=== PATIENT | male | born 1985 | race Caucasian/White ===

== ENCOUNTER 2016-08-22 11:27 | Emergency (ER) | payer OTHER ==
[~2016-08-22] VITALS: Ht 182.9 cm; Wt 106.8 kg
[~2016-08-22 11:27] MED LIST: AMLO5TAB2 PO; AMOX-366 PO; GABA800T2 PO; HYDR50TA76 PO; INSU100V4 SUBQ; LISI30TA5 PO; TOPI-59 PO; TRAZ-115 PO
[2016-08-22 11:40] VITALS: BP 133/84; PULSE 92; RESP 20; O2SAT 100
[2016-08-22 12:50] LABS: BASOPHILS % (AUTO) 0.6 % (0-3); EOSINOPHILS % (AUTO) 2.7 % (0-5); MONOCYTES % (AUTO) 5.2 % (4-12); Mean Corpuscular Hemoglobin 30.8 pg (27.0-35.0); Mean Corpuscular Volume 89.3 fL (81-100); NEUTROPHILS % (AUTO) 60.6 % (40-74); Platelet Count 364 bil/L (150-400)
[2016-08-22 13:11] LABS: Magnesium 1.9 mg/dL (1.6-2.6)
[2016-08-22 14:03] VITALS: BP 125/82; PULSE 73; RESP 20; O2SAT 100
--- NOTE | 2016-08-22 15:08 | ED.REPORT ---
HPI-Abd Pain M 40 and Over Date of Service Aug 22, 2016 ED Provider: Blair Ang MD History of Present Illness: OCC This is a 31 year old male with a history of DM and HTN presenting to the emergency department complaining of testicular pain that worsened 10 days ago. Pt had L inguinal hernia repair surgery in May and reports mild residual L testicular pain since then. However, ten days ago, pt developed R sided testicular pain along with lower abdominal pain. Abdominal pain is described as , "sharp and piercing." Associated symptoms include nausea. Pain has been constant and is exacerbated by movement. Denies swelling, fever, chills, dysuria, flank pain, discharge, or vomiting. Nursing Notes Stated Complaint: ABDOMINAL PAIN Chief Complaint: Male Abdominal Pain Nursing Notes Reviewed: Yes (Mipso not reconciled) Allergies: Coded Allergies: No Known Allergies (Verified Allergy, Unknown, 12/10/15) Scheduled Amlodipine (Amlodipine) 5 Mg Tablet 10 NG PO HS Amoxicillin/Clav K 875-125 mg (Augmentin 875-125 mg) 1 Each Tablet 1 TABLET PO BID Gabapentin (Gabapentin) 800 Mg Tablet 1,600 MG PO HS Insulin Detemir (Levemir U100 Insulin Vial) 100 Unit/1 Ml Vial 25 UNITS SUBQ QAM Lisinopril (Lisinopril) 30 Mg Tablet 30 MG PO DAILY Topiramate (Topiramate) 25 Mg Tablet 200 MG PO BID Trazodone (Trazodone) 50 Mg Tablet 50 MG PO HS Scheduled PRN Hydroxyzine HCl (HydrOXYzine Hcl) 50 Mg Tablet 50 MG PO QID PRN PRN For Itching General Time Seen by MD: 15:02 Chief Complaint Testicular pain R, Testicular pain L Hx Obtained From: Patient Arrived By: Walk-in Sudden in Onset?: Yes Onset Occurred: 1 week ago Symptom Duration: Since onset Severity: Current: Moderate Pertinent Negative: Pt denies other symptoms Recent Healthcare: No recent doctor visit, No recent hospitalization Similar Sx Previous: No Past Medical History Past Medical History HTN Seizures (focal nocturnal) anxiety insomnia arachnoid cyst polyps in sinus cavities Reports: Diabetes mellitus Past Surgical History Inguinal hernia repair Deviated septum repair Family History noncontributory Smoking History Current Every Day Smoker, Current Some Day Smoker Social History Alcohol Use: Denies alcohol use Drug Use: Denies drug use Ambulatory Status Independent Review of Systems Constitutional: Denies: Chills, Fever Respiratory: Denies: Non-productive cough GI: Reports: Abdominal pain, Nausea, Denies: Constipation, Diarrhea, Vomiting Male: Reports Testicular pain, Denies Dysuria Complete sys rev & neg: except as marked. Physical Exam Initial Vital Signs Vital Signs (First) Date Time Temp Pulse Resp B/P Pulse Ox O2 Delivery O2 Flow Rate FiO2 08/22/16 11:40 36.2 92 20 133/84 100 Room Air Initial VS: Reviewed, Vital signs normal Head / Eyes: Atraumatic, Normocephalic, PERRL ENT: Mucous membranes moist, Conjunctiva normal, No scleral icterus Neck: Supple, Non-tender, Full range of motion Extremities: Vascular intact, Neuro intact, No swelling, No tenderness Skin: Warm, Dry, No cyanosis Neurologic: Alert, Oriented, Nonfocal Psychiatric: Mood/affect normal, Behavior normal, Normal thought content General/Constitutional: Awake, Alert Respiratory / Chest: Breath sounds = bilat, No respiratory distress, No rales, No rhonchi Wheezing / Retractions: Positive: Wheeze insp/exp diffuse Cardiovascular: Heart rate NL, Regular rhythm, Heart sounds NL, Peripheral circulation NL Abdomen: No guarding, No rebound, BS normoactive Tenderness/Guarding/Rebound: Positive: Tender LLQ... (Mild) Back: Inspection NL, Non-tender, No CVA tenderness Male Genitourinary: Penis NL, No penile discharge, No meatal blood, No mass, No hernia Surgical incision at L inguinal region that appears well-healed. No mass, no obvious hernia recurrance, no swelling, no erythema, no clinical signs of torsion. Interpretation & Diagnostics Interpretation & Diagnostics: TESTICULAR US IMPRESSION: Normal testicles bilaterally. ABD/PELVIS CT IMPRESSION: 1. Post surgical changes in the left inguinal region related to left inguinal hernia repair. The left inguinal canal is prominent but no evidence for recurrent hernia. Mild soft tissue stranding deep to the left groin is likely postsurgical. 2. Enlargement of the left rectus abdominois muscle with mild stranding, likely secondary to resolving hematoma. There is no fluid collections. 3. Mild enlargement of appendix which measures 7.7 mm. There is no periappendiceal stranding. No right lower quadrant fluid collection or free fluid. Acute appendicitis is felt unlikely but clinical correlation is suggested. 4. A 3 mm nodule in the right middle lobe. Please see recommendations for followup. Fleischner Society criteria for SOLID lung nodule followup. Nodule size (mm)Low-risk patientHigh- risk [id number] follow-up neededFollow-up at 12 mo; if no change, no further follow-up>[id number] CT at 12 mo; if no change, no further follow-up needed.Initial follow-up CT at 6-12 mo, then 18-24 mo if no change. >6-8Initial follow-up CT at 6-12 mo, then 18-24 mo if no change. Initial follow-up CT at 3-6 mo, then 9-12 mo and 24 mo if no change. >8Follow-up CT at 3, 9, 24 mo. Or PET and/or biopsy.Same as for low-risk pts. Dictated by: Katy Lucas M.D. on 08/22/2016 at 16:18 Approved by: Katy Lucas M.D. on 08/22/2016 at 16:49 Dictated by: Gilberto Mccarthy RRA Interpreted: Tita Victoria MD on 08/22/2016 at 16:09 Transcribed by: KALIE on 08/22/2016 at 16:10 Lab Results Interpretation Result Diagram: 08/22/16 1241 08/22/16 1241 Test 08/22/16 12:41 08/22/16 14:42 08/22/16 15:21 White Blood Count 8.4th/mm3 (3.8-10.1) Red Blood Count 5.04mil/mm3 (4.40-5.80) Hemoglobin 15.5g/dL (13.8-17.2) Hematocrit 45.0% (41.0-50.0) Mean Corpuscular Volume 89.3fL (81-100) Mean Corpuscular Hemoglobin 30.8pg (27.0-35.0) Mean Corpuscular Hemoglobin Concent 34.4% (32.0-37.0) Red Cell Distribution Width 12.9% (12.3-15.4) Platelet Count 364bil/L (150-400) Neutrophils (%) (Auto) 60.6% (40-74) Lymphocytes (%) (Auto) 30.5% (14-46) Monocytes (%) (Auto) 5.2% (4-12) Eosinophils (%) (Auto) 2.7% (0-5) Basophils (%) (Auto) 0.6% (0-3) Sodium Level 137mEq/L (134-144) Potassium Level 4.1mEq/L (3.5-5.2) Chloride Level 103mEq/L (97-108) Carbon Dioxide Level 18mmol/L (18-29) Blood Urea Nitrogen 9mg/dL (6-20) Creatinine 0.53mg/dL (0.76-1.27) Estimat Glomerular Filtration Rate 191mL/min (>59) Glucose Level 165mg/dL (60-99) Calcium Level 9.2mg/dL (8.5-10.1) Magnesium Level 1.9mg/dL (1.6-2.6) Total Bilirubin 0.2mg/dL (0.0-1.2) Aspartate Amino Transf (AST/SGOT) 15U/L (0-50) Alanine Aminotransferase (ALT/SGPT) 22U/L (0-44) Alkaline Phosphatase 67U/L (25-150) Total Protein 7.2g/dL (6.4-8.4) Albumin 5.0g/dL (3.4-5.0) Lipase 28U/L (13-60) Hold Urine Received (Received) Urine Color Straw (YELLOW) Urine Appearance Hazy (CLEAR,HAZY) Urine pH 7.5 (5.0-8.0) Urine Specific [place] 1.015 (1.003-1.035) Urine Protein Negativemg/dL (NEG,TRACE) Urine Glucose (UA) Negativemg/dL (NEGATIVE) Urine Ketones Negativemg/dL (NEGATIVE) Urine Occult Blood Negative (NEGATIVE) Urine Nitrite Negative (NEGATIVE) Urine Bilirubin Negative (NEGATIVE) Urine Urobilinogen Normalmg/dL (NORMAL) Urine Leukocyte Esterase Negative (NEGATIVE) Urine RBC 0-2/hpf (0-2) Urine WBC 0-5/hpf (0-5) Urine Epithelial Cells None/hpf (NONE-MOD) Urine Crystals None seen (NONE SEEN) Urine Bacteria None/hpf (NONE-FEW) Urine Hyaline Casts None/lpf (NONE) Urine Granular Casts None seen (NONE SEEN) Urine Waxy Casts None seen (NONE SEEN) Urine Red Blood Cell Casts None seen (NONE SEEN) Urine White Blood Cell Casts None seen (NONE SEEN) Urine Mucus None seen (None Seen) Urine Trichomonas None seen (NONE SEEN) Urine Yeast None (NONE SEEN) Urinalysis Comment Amorphous sediment Urine Culture Reflexed Not indicated Lab Results Interpretation: CBC normal CMP normal Re-Eval/Medical Decision Med Decision/Clinical Course This is a 31-year-old male was several months ago underwent a left inguinal hernia repair, has had some chronic pain reports she has been told there may be some "nerve damage" but reports over the past week he has had increasing pain radiating to both testicles, now across the lower abdomen, mainly on the left. He denies fevers, dysuria, urethral discharge, scrotal swelling, scrotal erythema, or other clear complaint. He clinically appears well and no visible external distress. His vital signs are normal. His physical exam is normal, he has some mild tenderness to the left lower quadrant without guarding or rebound. He is uncircumcised male no penile pathology, scrotal exam and testicular exam is normal without findings clinically I was scrotal abscess, infection, epididymitis, orchitis, or torsion. Workup was pursued given his description of symptoms. Testicular ultrasound was normal, no evidence of torsion or other overt pathology. CT abdomen itching of the abdomen is also negative. The radiologist comments that the appendix on the right side appears slightly enlarged, but there are no strenuous or other features of appendicitis and recommends clinical correlation , and the patient's clinical history, physical exam, and laboratory studies do not demonstrate any findings to suggest appendicitis. Definitive cause of his symptoms is not identified. The patient's advised of this and is comfortable with discharge home and follow-up with his physician. Routine precautions reviewed. Patient is discharged in stable condition. Source of Hx: Old records Time of Eval: 17:28 Re-Evaluation/Progress Note: Discussed lab and imaging results and plan for discharge, pt understands and agrees with plan, all questions addressed. Differential Diagnosis: Negative: Abdominal aortic aneurysm, Abscess, Gastroenteritis, Gun shot wound abdomen, Stab wound abdomen, Torsion appendix teste L, Torsion appendix teste R, Torsion testicle L, Torsion testicle R, Urinary tract infection, Volvulus Counseled Regarding: Diagnosis, Lab results, Need for follow-up, When/why to return to ED Discharge & Departure Primary Impression: Generalized abdominal pain Disposition: Home Vital Signs - All Vital Signs Date Time Temp Pulse Resp B/P Pulse Ox O2 Delivery O2 Flow Rate FiO2 08/22/16 14:03 73 20 125/82 100 08/22/16 11:40 36.2 92 20 133/84 100 Room Air )( All Prior VS Reviewed: Yes Condition: Stable Additional Instructions: 1. A dangerous cause of the testicle and abdominal pain you have been having for the past week was not identified. 2. Your blood tests were normal. 3. The ultrasound of the testicles were normal. 4. The CT scan reveals some expected post-surgical scarring at the sight of the hernia repair - but there are no signs of a recurrent hernia. 5. Activities as tolerated 6. Take ibuprofen 400mg - 800mg three times a day for pain 7. Call for an appointment with your regular doctor for a recheck. 8. Return if new or worsening symptoms (fevers, swelling, etc...) Referrals: Michael Thomas MD (PCP) Scribe Attestation Portions of this note were transcribed by Tonie Springer. I, Dr. Ang personally performed the history, physical exam and medical decision-making; I reviewed and confirmed the accuracy of the information in the transcribed note. Signed by: sydney Macias. 08/22/2016, 23:30. Blair Ang MD Aug 22, 2016 15:08 TONIE SPRINGER Aug 22, 2016 15:20
[2016-08-22] MEDS ORDERED: Ondansetron 2 mg/mL 2 mL Inj IVPUSH ONE (15:20)
[2016-08-22] MEDS ORDERED: HYDROmorphone 0.5 mg/0.5 mL iSecure Syringe IVPUSH PRN (15:20)
[2016-08-22 15:53] LABS: APPEARANCE,URINE HAZY (CLEAR,HAZY); COLOR,URINE STRAW (YELLOW); OCCULT BLOOD,URINE NEGATIVE (NEGATIVE); PH,URINE 7.5 (5.0-8.0); UROBILINOGEN,URINE NORMAL (NORMAL)
--- NOTE | 2016-08-22 16:10 | DRSVH ---
PROCEDURE: US TESTICULAR SONOGRAM WITH DOPPLER INDICATIONS: testicular pain TECHNIQUE: Real-time scanning was performed of the scrotum and testicles, with image documentation. Color and p ulse Doppler interrogation was performed of both testicles. COMPARISON: None. FINDINGS: Right: Testicle is normal in size at 4.3 x 3.2 x 2.8 cm, and homogenous in echotexture. Epididymis is normal in overall size and morphology. No hydrocele or varicoceles. Overlying scrotal skin is no rmal in thickness. Left: Testicle is normal in size at 3.7 x 3.9 x 2.5 cm, and homogeneous in echotexture. Epididymis is normal in overall size and morphology. No hydrocele or varicoceles. Overlying scrotal skin is no rmal in thickness. Doppler: Color and pulse Doppler demonstrate normal and symmetric arterial flow in both testicles. IMPRESSION: Normal testicles bilaterally. Dictated by: Gilberto HARTMAN Interpreted: Tita Victoria MD on 08/22/2016 at 16:09 Transcribed by: KALIE on 08/22/2016 at 16:10 Approved by: Tita Victoria M.D. on 08/22/2016 at 16:48
--- NOTE | 2016-08-22 16:51 | DRSVH ---
PROCEDURE: CT ABDOMEN AND PELVIS WITH CONTRAST ([id number]) INDICATIONS: lower abd pain TECHNIQUE: After the administration of intravenous contrast, 5 mm thick sections acquired from the diaphragm to the symphysis. 5 mm coronal and sagittal reformats were acquired. For radiation dose reduction, the following was used: automated exposure control, adjustment of mA and/or kV according to patient siz e. COMPARISON: [facility], CT, CT ABDOMEN PELVIS W CONTRAST, 12/31/2015, 10:21 AM. [facility], CT, CT ABDOMEN PELVIS W CONTRAST, 03/10/2016, 10:05 PM. [facility], C T, CT ABD PELVIS W CON, 06/15/2015, 0:49. FINDINGS: Image quality: Excellent. ABDOMEN: Lung bases: There is a 3 mm nodule in the right middle lobe, which is unchanged from 12/31/59. Heart size is normal. Solid organs: Liver and spleen are normal in size and enhancement. Gallbladder is normal. Biliary system is non dilated. Pancreas enhances normally. No adrenal nodules. Kidneys demonstrate normal size and enhancement, without hydronephrosis. Peritoneum and bowel: Bowel loops demonstrate normal wall thickness and caliber. The appendix is pr ominent measuring 7.7 mm. There is no inflammatory stranding around appendix. No appendicoliths. No f ree fluid in the right lower quadrant.. No free air. Nodes and vessels: No retroperitoneal or mesenteric adenopathy by size criteria. Aorta and inferior vena cava are normal in size. Miscellaneous: No ventral hernias. PELVIS: Genitourinary: Bladder wall thickness is normal. Miscellaneous: The left internal canal is prominent but no recurrent inguinal hernia. The left rectus muscle is enlarged with mild stranding and mass effect to the left anterior aspect of the urinary bl adder. A small amount of fluid in the left scrotum is consistent with small hydrocele. Bones: No suspicious bony lesions. No vertebral body compression fractures. IMPRESSION: 1. Post surgical changes in the left inguinal region related to left inguinal hernia repair. The left inguinal canal is prominent but no evidence for recurrent hernia. Mild soft tissue stranding deep to the left groin is likely postsurgical. 2. Enlargement of the left rectus abdominois muscle with mild stranding, likely secondary to resolvin g hematoma. There is no fluid collections. 3. Mild enlargement of appendix which measures 7.7 mm. There is no periappendiceal stranding. No righ t lower quadrant fluid collection or free fluid. Acute appendicitis is felt unlikely but clinical co rrelation is suggested. 4. A 3 mm nodule in the right middle lobe. Please see recommendations for followup. Fleischner Society criteria for SOLID lung nodule followup. Nodule size (mm)Low-risk patientHigh-risk [id number] follow-up neededFollow-up at 12 mo; if no townsend e, no further follow-up>[id number] CT at 12 mo; if no change, no further follow-up needed.Initial f ollow-up CT at 6-12 mo, then 18-24 mo if no change. >6-8Initial follow-up CT at 6-12 mo, then 18-24 mo if no change. Initial follow-up CT at 3-6 mo, then 9-12 mo and 24 mo if no change. >8Follow-up CT at 3, 9, 24 mo. Or PET and/or biopsy.Same as for low-risk pts. Dictated by: Katy Lucas M.D. on 08/22/2016 at 16:18 Approved by: Katy Lucas M.D. on 08/22/2016 at 16:49
== END 2016-08-22 18:09 | disposition home or self-care (01) ==
LOC: SED 11:27
DX: R10.84 Generalized abdominal pain (principal); Z98.890 Other specified postprocedural states; E11.9 Type 2 diabetes mellitus without complications; I10 Essential (primary) hypertension; F17.200 Nicotine dependence, unspecified, uncomplicated; Z79.4 Long term (current) use of insulin
CPT/HCPCS: 36415; 74177; 76870; 80053; 81000; 83690; 83735; 85025; 87491; 87591; 93975; 96374; 96375; 99285; J1170; J2405; Q9967

== ENCOUNTER 2016-11-07 15:36 | Emergency (ER) | payer OTHER ==
[~2016-11-07] VITALS: Ht 182.9 cm; Wt 109.1 kg
[2016-11-07 15:49] VITALS: BP 139/92; PULSE 86; RESP 17; O2SAT 100
--- NOTE | 2016-11-07 16:24 | ED.REPORT ---
HPI-Chest Pain Under 40 Date of Service November 07, 2016 ED Provider: Blair Ang MD 31 y/o male with a hx of HTN, DM, asthma, and anxiety presents to the ED complaining of chest pain, onset yesterday. The pt reports his pain is exacerbated with activity but today he suddenly began experiencing pain around noon while he was resting. He states "it feels like someone is punching me". His pain starts in the middle of the chest and radiates to the right side. Associated sx include nausea and intermittent SOB with walking, which typically lasts 2-3 hours. The pt reports that two days ago he experienced chest pain on the right side and could not walk due to SOB. The pt denies any SOB currently. He also denies vomiting and diaphoresis.The pt reports he took Aspirin which did not improve his sx. Pt's mother has had multiple Myocardial Infarctions, the first one at age 31. He has never had a stress test before. Nursing Notes Stated Complaint: CHEST PAIN Chief Complaint: Chest Pain Nursing Notes Reviewed: Yes ([employer] not reconciled) Allergies: Coded Allergies: No Known Allergies (Verified Allergy, Unknown, 11/07/16) Scheduled Amlodipine (Amlodipine) 5 Mg Tablet 10 NG PO HS Amoxicillin/Clav K 875-125 mg (Augmentin 875-125 mg) 1 Each Tablet 1 TABLET PO BID Gabapentin (Gabapentin) 800 Mg Tablet 1,600 MG PO HS Insulin Detemir (Levemir U100 Insulin Vial) 100 Unit/1 Ml Vial 25 UNITS SUBQ QAM Lisinopril (Lisinopril) 30 Mg Tablet 30 MG PO DAILY Topiramate (Topiramate) 25 Mg Tablet 200 MG PO BID Trazodone (Trazodone) 50 Mg Tablet 50 MG PO HS Scheduled PRN Hydroxyzine HCl (HydrOXYzine Hcl) 50 Mg Tablet 50 MG PO QID PRN PRN For Itching General Time Seen by MD: 16:19 Chief Complaint Chest pain Hx Obtained From: Patient Arrived By: Walk-in Sudden in Onset?: Yes Onset Occurred: Yesterday Context of Onset: Light exertion Symptom Duration: Since onset Location: : Chest right: Substernal Quality: Throbbing Radiation: : Does not radiate Severity: Current: Pain level 9 out of 10 Severity: Maximum: Pain level 9 out of 10 Recent Healthcare: Recent doctor visit Similar Sx Previous: Yes Past Medical History Past Medical History Notes: Patient with previous chest pain evaluation December 2015, dangerous etiology not identified anxiety noted Past Medical History HTN Seizures (focal nocturnal) anxiety insomnia arachnoid cyst polyps in sinus cavities Reports: Diabetes mellitus Past Surgical History Inguinal hernia repair Deviated septum repair Family History noncontributory Smoking History Current Every Day Smoker, Current Some Day Smoker Social History Alcohol Use: Denies alcohol use Drug Use: THC Ambulatory Status Independent Review of Systems Respiratory: Reports: Dyspnea on exertion, Shortness of breath Cardiovascular: Reports: Chest pain GI: Reports: Nausea, Denies: Vomiting Skin: Denies Diaphoresis Psychiatric: Denies: Anxiety Complete sys rev & neg: except as marked. Physical Exam Initial Vital Signs Vital Signs (First) Date Time Temp Pulse Resp B/P Pulse Ox O2 Delivery O2 Flow Rate FiO2 11/07/16 15:49 36.3 86 17 139/92 100 Room Air Initial VS: Reviewed, Vital signs normal Head / Eyes: Atraumatic, Normocephalic, PERRL ENT: Mucous membranes moist, Conjunctiva normal, No scleral icterus Neck: Supple, Non-tender, Full range of motion Abdomen / GI: Soft, Non-tender, No guarding, No rebound, No distention Extremities: Vascular intact, Neuro intact, No swelling, No tenderness Skin: Warm, Dry, No cyanosis Neurologic: Alert, Oriented, Nonfocal General/Constitutional: Awake, Alert, No acute distress, Cooperative Respiratory / Chest: Atraumatic, Breath sounds NL, Breath sounds = bilat, No respiratory distress, No rales, No rhonchi, No wheezing Cardiovascular: Heart rate NL, Regular rhythm, Heart sounds NL, No gallop, No murmurs No finding of venous thromboembolism Psychiatric: Cognitive function NL Abnormal Mood/Affect: Positive: Anxious Interpretation & Diagnostics Interpretation & Diagnostics: Continue, multiple chest pain prior evaluations all negative including prior CT angiogram negative Lab Results Interpretation Result Diagram: 11/07/16 1614 11/07/16 1614 Test 11/07/16 16:14 White Blood Count 9.1th/mm3 (3.8-10.1) Red Blood Count 5.14mil/mm3 (4.40-5.80) Hemoglobin 15.8g/dL (13.8-17.2) Hematocrit 46.1% (41.0-50.0) Mean Corpuscular Volume 89.7fL (81-100) Mean Corpuscular Hemoglobin 30.7pg (27.0-35.0) Mean Corpuscular Hemoglobin Concent 34.3% (32.0-37.0) Red Cell Distribution Width 12.7% (12.3-15.4) Platelet Count 333bil/L (150-400) Neutrophils (%) (Auto) 60.3% (40-74) Lymphocytes (%) (Auto) 28.9% (14-46) Monocytes (%) (Auto) 6.7% (4-12) Eosinophils (%) (Auto) 3.2% (0-5) Basophils (%) (Auto) 0.5% (0-3) Sodium Level 138mEq/L (134-144) Potassium Level 4.0mEq/L (3.5-5.2) Chloride Level 104mEq/L (97-108) Carbon Dioxide Level 17mmol/L (18-29) Blood Urea Nitrogen 10mg/dL (6-20) Creatinine 0.71mg/dL (0.76-1.27) Estimat Glomerular Filtration Rate 137mL/min (>59) Glucose Level 156mg/dL (60-99) Calcium Level 9.7mg/dL (8.5-10.1) Magnesium Level 2.0mg/dL (1.6-2.6) Total Bilirubin 0.2mg/dL (0.0-1.2) Aspartate Amino Transf (AST/SGOT) 19U/L (0-50) Alanine Aminotransferase (ALT/SGPT) 17U/L (0-44) Alkaline Phosphatase 60U/L (25-150) Troponin T < 0.010ug/L (0.0-0.011) Total Protein 7.7g/dL (6.4-8.4) Albumin 4.7g/dL (3.4-5.0) Hold Warren Top Tube Received (Received) Lab Results Interpretation: CBC normal CMP mildly low CO2, troponin negative despite protracted hours of symptoms ECG Interpretation ECG Interpretation: Normal sinus rhythm. Rate 90. Benign borderline repolarization No Interval changes compared to December,. Time: 15:57 Interpreted by: ED physician X-Ray Chest Interpretation Chest Xray Interpretation: IMPRESSION: Negative chest. No acute cardiopulmonary process is evident. Dictated by: Job Jones M.D. on 11/07/2016 at 15:45 Approved by: Job Jones M.D. on 11/07/2016 at 15:46 View: Portable, 1 view Interpretation / Wet Read by: Interpret - Radiologist Re-Eval/Medical Decision Med Decision/Clinical Course This is a 31-year-old male presents complaining of chest pain. Atypical, but he has had multiple bouts of this before reports is the same character just slightly more severe. Again there is a mom exertional component. He has been seen numerous times over the years-with several workups performed, no dangerous etiology identified. He does have a concerning family history mother with heart disease in her 30s. He also notes he just try to stop marijuana, states hurting all over and reports he wonders if that might be contributing to his symptoms. Exam he is anxious, but otherwise appears well. He has normal vitals, is not tachycardic or hypoxic. His EKG is without acute ischemic change or interval change. Labs are normal Normal. He received 2 mg lorazepam but reported that did not help. Complaints of pain all over. My suspicion for acute coronary syndrome, pulmonary embolism, pneumothorax, pancreatitis and other severe pathology is low. Not finding much indicated additional testing is warranted at this time. Reassurance is provided. Source of Hx: Old records Re-Evaluation/Progress : Time of Eval: 17:30 Re-Evaluation/Progress Note: Rechecked pt. He reports he is still in pain. Discussed lab and imaging results and diagnosis. Informed the pt of the plan to discharge after administration of pain medication. Pt understands and agrees with plan. F/U instructions and RTER warning given. All questions addressed. Counseled Regarding: Diagnosis, Lab results, Need for follow-up, When/why to return to ED Discharge & Departure Primary Impression: Chest pain Chest pain type: unspecified Qualified Code: R07.9 - Chest pain, unspecified Disposition: Home Discharge Condition All VS Reviewed: Yes Condition: Stable Patient Instructions: Chest Pain (ED) Additional Instructions: 1. Your tests in the emergency department were normal and did not reveal any dangerous cause of the chest pain. Her EKG is normal, and your heart tests were normal. 2. No abnormality was appreciated on your x-ray. 3. Symptoms are expected to improve with time. Activities as tolerated. 4. Follow-up with Dr. Thomas 5. Return if new or worsening symptoms. Referrals: Michael Thomas MD (PCP) Scribe Attestation Portions of this note were transcribed by Fawn Boston. I, , personally performed the history, physical exam and medical decision-making;I reviewed and confirmed the accuracy of the information in the transcribed note. Signed by Brianne Treviño. 11/07/16 18:08 copies to: Michael Thomas MD, Matthew F MD November 07, 2016 16:24 Fawn Boston November 07, 2016 16:34
[2016-11-07 16:26] LABS: BASOPHILS % (AUTO) 0.5 % (0-3); EOSINOPHILS % (AUTO) 3.2 % (0-5); MONOCYTES % (AUTO) 6.7 % (4-12); Mean Corpuscular Hemoglobin 30.7 pg (27.0-35.0); Mean Corpuscular Volume 89.7 fL (81-100); NEUTROPHILS % (AUTO) 60.3 % (40-74); Platelet Count 333 bil/L (150-400)
--- NOTE | 2016-11-07 16:47 | DRSVH ---
PROCEDURE: X-RAY CHEST ONE VIEW, PORTABLE ([id number]) INDICATIONS: chest pain TECHNIQUE: One view of the chest was acquired. COMPARISON: [facility], CR, XR CHEST 2VW, 06/15/2015, 2:40. FINDINGS: Surgical changes and devices: None. Lungs and pleura: No pleural effusions or pneumothorax. Lungs are clear. Mediastinum: Mediastinal contours appear normal. Heart size is normal. Bones and chest wall: No suspicious bony lesions. Overlying soft tissues appear unremarkable. IMPRESSION: Negative chest. No acute cardiopulmonary process is evident. Dictated by: Job Jones M.D. on 11/07/2016 at 15:45 Approved by: Job Jones M.D. on 11/07/2016 at 15:46
[2016-11-07 16:51] LABS: TROPONIN T < 0.010 ug/L (0.0-0.011)
[2016-11-07] MEDS ORDERED: Ondansetron 8 mg ODT Tablet PO ONE ×2 (17:30→18:25)
[2016-11-07] MEDS ORDERED: HYDROmorphone 1 mg/mL Inj IM ONE ×2 (17:30→18:25)
[2016-11-07 18:14] VITALS: BP 118/78; PULSE 74; RESP 20; O2SAT 99
[2016-11-07 19:08] VITALS: BP 120/68; PULSE 76; RESP 16; O2SAT 99
== END 2016-11-07 19:44 | disposition home or self-care (01) ==
LOC: SED 15:36
DX: R07.9 Chest pain, unspecified (principal); I10 Essential (primary) hypertension; E11.9 Type 2 diabetes mellitus without complications; F17.200 Nicotine dependence, unspecified, uncomplicated; Z79.4 Long term (current) use of insulin; Z79.899 Other long term (current) drug therapy
CPT/HCPCS: 36415; 71010; 80053; 83735; 84484; 85025; 93005; 96372; 99284; J1170; J2060

== ENCOUNTER 2016-11-08 21:39 | Inpatient (IN) | payer OTHER ==
[~2016-11-08] VITALS: Ht 182.9 cm; Wt 108.2 kg
[2016-11-08 21:43] VITALS: BP 141/79; PULSE 112; RESP 16; O2SAT 99
[2016-11-08 21:45] VITALS: BP 141/79; PULSE 108; RESP 20; O2SAT 98
--- NOTE | 2016-11-08 21:50 | ED.REPORT ---
HPI-Seizure Date of Service November 08, 2016 ED Provider: Dr. 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 His last seizure was 3 days ago. His neurologist is Dr. Cordova. He was seen yesterday at the ED for chest pain at which point testing and imaging did not reveal any dangerous causes. Nursing Notes Stated Complaint: SEIZURES Chief Complaint: Seizure Nursing Notes Reviewed: Yes Allergies: Coded Allergies: No Known Allergies (Verified Allergy, Unknown, 11/07/16) Scheduled Amlodipine (Amlodipine) 5 Mg Tablet 10 MG PO HS Gabapentin (Gabapentin) 800 Mg Tablet 1,600 MG PO HS Insulin Detemir (Levemir U100 Insulin Vial) 100 Unit/1 Ml Vial 25 UNITS SUBQ QAM Lisinopril (Lisinopril) 30 Mg Tablet 30 MG PO DAILY Topiramate (Topiramate) 25 Mg Tablet 200 MG PO BID Trazodone (Trazodone) 50 Mg Tablet 100 MG PO HS Scheduled PRN Lorazepam (Lorazepam) 0.5 Mg Tablet 0.5 MG PO TID PRN PRN For Anxiety General Time Seen by Provider: 21:50 Chief Complaint Chief Complaint: Seizure, focal Hx Obtained From: Patient Arrived By: Walk-in Onset Occurred: Just prior to arrival Symptom Duration: Since onset Recent Healthcare: Recent doctor visit Similar Sx Previous: Yes Past Medical History Past Medical History Notes: Patient with previous chest pain evaluation December 2015, dangerous etiology not identified anxiety noted Past Medical History HTN Seizures (focal nocturnal) anxiety insomnia arachnoid cyst polyps in sinus cavities Reports: Diabetes mellitus Past Surgical History Inguinal hernia repair Deviated septum repair Family History noncontributory Smoking History Current Every Day Smoker, Current Some Day Smoker Social History Alcohol Use: Denies alcohol use Drug Use: THC Other Social History: Good social support, Local resident Ambulatory Status Independent Review of Systems Cardiovascular: Denies: Chest pain Neurologic: Reports: Seizure, Shaking, Denies: Change LOC, Confusion, Dizziness, Numbness, Slurred speech, Syncope, Weakness Complete sys rev & neg: except as marked. Physical Exam Initial Vital Signs Vital Signs (First) Date Time Temp Pulse Resp B/P Pulse Ox O2 Delivery O2 Flow Rate FiO2 11/08/16 21:43 36.7 112 16 141/79 99 Room Air Initial VS: Reviewed Head / Eyes: Atraumatic, Normocephalic, PERRL ENT: Mucous membranes moist, Conjunctiva normal Abdomen / GI: Soft, Non-tender Extremities: Vascular intact, Neuro intact, No swelling, No tenderness General/Constitutional: Awake, Cooperative Neck: Atraumatic, Supple, No meningismus Respiratory / Chest: Atraumatic, Breath sounds NL, Breath sounds = bilat Cardiovascular: Heart rate NL, Regular rhythm, Heart sounds NL Neurologic: Oriented X3, Speech NL, No motor deficits, No sensory deficits initialy post-ictal but now awake, alert, oriented Interpretation & Diagnostics Lab Results Interpretation Result Diagram: 11/09/16 0545 11/09/16 0545 Test 11/08/16 21:50 Hold Warren Top Tube Received (Received) Re-Eval/Medical Decision Med Decision/Clinical Course 31-year-old male with epilepsy currently on monotherapy. He has had multiple breakthrough seizures. 2 generalized seizures today. He presented the emergency room a mildly postictal. He received a dose of IV Valium He had one partial seizure with left upper arm motor activity that lasted less than a minute. Dr. Cordova graciously consulted He recommended Fosphenytoin and admit. Re-Evaluation/Progress : Time of Eval: 22:55 Re-Evaluation/Progress Note: Pt rechecked. Pt had one partial seizure after receiving medication. Plan for more Fosphenytoin. Stroke has been consulted. Plan for admission for further evaluation. Consultation : Referral / Consult Name: Reese Kaur MD Consulted With: Neurology Call Returned at: 00:30 Reverberatory Furnace Operator: Agrees with eval, Agrees with plan Note: Case discussed. Counseled Regarding: Diagnosis, Lab results, Need for admission Discharge & Departure Impression: Primary Impression: Seizure Disposition: ADMITTED TO HOSPITAL Discharge Condition All VS Reviewed: Yes Condition: Stable Referrals: Michael Thomas MD (PCP) Scribe Attestation Portion of this note were transcribed by Selina Lopez. I, Dr. Gareth Mayo, personally performed the history, physical exam, and medical decision-making: I reviewed and confirmed the accuracy for the information in the transcribed note. Signed by: sydney Linares, 11/08/16 2300 copies to: Michael Thomas MD, Todd P DO November 08, 2016 21:50 Selina Lopez November 08, 2016 21:53 137mEq/L (134-144) Potassium Level mEq/L (3.5-5.2) Chloride Level 102mEq/L (97-108) Carbon Dioxide Level 18mmol/L (18-29) Blood Urea Nitrogen 15mg/dL (6-20) Creatinine 0.81mg/dL (0.76-1.27) Estimat Glomerular Filtration Rate 117mL/min (>59) Glucose Level 187mg/dL (60-99) Calcium Level 9.5mg/dL (8.5-10.1) Total Bilirubin 0.2mg/dL (0.0-1.2) Aspartate Amino Transf (AST/SGOT) 47U/L (0-50) Alanine Aminotransferase (ALT/SGPT) 18U/L (0-44) Alkaline Phosphatase 48U/L (25-150) Total Protein 7.7g/dL (6.4-8.4) Albumin 4.4g/dL (3.4-5.0) Hold Warren Top Tube Received (Received) Re-Eval/Medical Decision Re-Evaluation/Progress : Time of Eval: 22:55 Re-Evaluation/Progress Note: Pt rechecked. Pt had one partial seizure after receiving medication. Plan for more Fosphenytoin. Stroke has been consulted. Plan for admission for further evaluation. Consultation : Referral / Consult Name: Reese Kaur MD Consulted With: Neurology Call Returned at: 00:30 Reverberatory Furnace Operator: Agrees with eval, Agrees with plan Note: Case discussed. Counseled Regarding: Diagnosis, Lab results, Need for admission Discharge & Departure Impression: Primary Impression: Seizure Disposition: ADMITTED TO HOSPITAL Discharge Condition All VS Reviewed: Yes Condition: Stable Referrals: Michael Thomas MD (PCP) Scribe Attestation Portion of this note were transcribed by Selina Lopez. I, Dr. Gareth Mayo, personally performed the history, physical exam, and medical decision-making: I reviewed and confirmed the accuracy for the information in the transcribed note. Signed by: sydney Linares, 11/08/16 2300 copies to: Michael Thomas MD, Todd P DO November 08, 2016 21:50 Selina Lopez November 08, 2016 21:53
[2016-11-08 22:01] LABS: BASOPHILS % (AUTO) 0.4 % (0-3); EOSINOPHILS % (AUTO) 3.5 % (0-5); MONOCYTES % (AUTO) 7.9 % (4-12); Mean Corpuscular Hemoglobin 30.9 pg (27.0-35.0); Mean Corpuscular Volume 90.4 fL (81-100); NEUTROPHILS % (AUTO) 49.8 % (40-74); Platelet Count 364 bil/L (150-400)
[2016-11-08 22:30] VITALS: BP 112/62; PULSE 103; RESP 21; O2SAT 93
[2016-11-08 23:15] VITALS: BP 122/67; PULSE 98; RESP 20; O2SAT 99
[2016-11-08] MEDS ORDERED: Fosphenytoin Inj 1,000 mgPE in 0.9% Sodium Chloride 50 ML IV ONE (23:20)
[2016-11-09] VITALS (12 sets, daily range): BP systolic 101–114; BP diastolic 58–68; PULSE 54–84; RESP 14–20; O2SAT 91–98
[2016-11-09] MEDS ORDERED: Alum-Mag Hydrox-Simeth 30 mL Suspension PO PRN
[2016-11-09] MEDS ORDERED: Polyethylene Glycol (PEG) 17 Gm Powder PO PRN
[2016-11-09] MEDS ORDERED: hydrOXYzine Pamoate 25 mg Capsule PO PRN (00:05)
--- NOTE | 2016-11-09 00:16 | PCM.HPMED ---
Subjective Date of Service November 09, 2016 Primary Provider: Admitting Physician: Primary Care Physician: Michael Thomas MD Attending Physician: Admit Status: From the Emergency Department Chief Complaint: Seizure History of Present Illness: Michael Bo is a 31 year old man with a PMH of seizure(focal nocturnal), arachnoid cyst, sinus polyps, DM2, Tremor, and insomnia who presents having had 3 seizures in the past 24 hours. He relates that he had 2 seizures prior to presentation and likely had another while in the ED. He further relates that recently he has been experiencing chest pain for which he has sought evaluation in the [facility] ED yesterday, this evaluation failed to reveal any concerning pathology. He has had perhaps 2 other seizures over the past 2 weeks, after not having any seizures for the past 2-3 years. He is a patient of Dr. Cordova who recently prescribed Keppra, which the patient was unable to tolerate secondary to somnolence. He states that he does not currently feel any chest pain. He generally feels a pain and stiffness in his neck prior to the onset of seizure. He has a small amplitude medium frequency tremor at baseline of uncertain etiology. He currently denies headache, and changes in vision or sensation, chest pain, SOB, or anxiety. His blood sugars have not been grossly abnormal and he is not able to identify any acute changes in his life beyond the recent failed induction of Keppra which was after he began having seizures again. The ED contacted Dr. Cordova, who instructed us to begin a loading and maintenance dose of Fosphenytoin, and he will see the patient in the AM. Review of Systems: Comprehensive ROS negative except as listed above in the HPI Allergies Coded Allergies: No Known Allergies (Verified Allergy, Unknown, 11/07/16) Home Medications Scheduled Amlodipine (Amlodipine) 5 Mg Tablet 10 NG PO HS Gabapentin (Gabapentin) 800 Mg Tablet 1,600 MG PO HS Insulin Detemir (Levemir U100 Insulin Vial) 100 Unit/1 Ml Vial 25 UNITS SUBQ QAM Lisinopril (Lisinopril) 30 Mg Tablet 30 MG PO DAILY Topiramate (Topiramate) 25 Mg Tablet 200 MG PO BID Trazodone (Trazodone) 50 Mg Tablet 50 MG PO HS Lorazepam 0.5 mg Q8 PRN for facial twitching Scheduled PRN Hydroxyzine HCl (HydrOXYzine Hcl) 50 Mg Tablet 50 MG PO QID PRN PRN For Itching PMH HTN Seizures (focal nocturnal) anxiety insomnia arachnoid cyst polyps in sinus cavities Reports: Diabetes mellitus Surgical History Inguinal hernia repair Deviated septum repair Family History Patient's mother had multiple OH, first one age 31 Social History Hx Alcohol Use: No Hx Substance Use: Yes (Marijuana a couple times per months) Hx Tobacco Use: No Smoking Status: Current Every Day Smoker, Current Some Day Smoker Exam Vital Signs Vital Sign - Last Date Time Temp Pulse Resp B/P Pulse Ox O2 Delivery O2 Flow Rate FiO2 11/08/16 21:43 36.7 112 16 141/79 99 Room Air Exam Gen: A/O x3 pleasant cooperative man in NAD Neck: Supple, Full ROM with crepitus, no JVD HEENT: PERRL, EOMI, mucous membranes dry, no scleral icterus CV: RRR, no murmurs rubs or gallops Resp: Lungs CTA BL, no wheezing rales or rhonchi Abd: Soft, non tender, no organomegaly Extr: Many tattoos, no cyanosis clubbing or edema Neuro: CN 2-12 grossly intact, no focal neurologic deficit, Medium frequency low amplitude tremor of BL hands Psych: Patient expressing some frustration with lack of answers about his recent decompensation. Lab and Diagnostics Labs Item Value Date Time Red Blood Count 4.98 mil/mm3 11/08/162149 Platelet Count 364 dejon/L 11/08/162149 Neutrophils (%) (Auto) 49.8 % 11/08/162149 Lymphocytes (%) (Auto) 37.7 % 11/08/162149 Monocytes (%) (Auto) 7.9 % 11/08/162149 Eosinophils (%) (Auto) 3.5 % 11/08/162149 Basophils (%) (Auto) 0.4 % 11/08/162149 Estimat Glomerular Filtration Rate 117 mL/min 11/08/162149 Calcium Level 9.5 mg/dL 11/08/162149 Total Bilirubin 0.2 mg/dL 11/08/162149 Aspartate Amino Transf (AST/SGOT) 47 U/L 11/08/162149 Alanine Aminotransferase (ALT/SGPT) 18 U/L 11/08/162149 Alkaline Phosphatase 48 U/L 11/08/162149 Total Protein 7.7 g/dL 11/08/162149 Albumin 4.4 g/dL 11/08/162149 Result Diagram: 11/08/16214911/08/162149 Assessment & Plan Michael Bo is a 31 year old man with a PMH of Seizure, arachnoid cyst, DM2, and HTN who presents following multiple seizures in the past [address] Cordova is his neurologist and was contacted by the ED, he informed that to load the patient with fosphenytoin and that he would see the patient in the AM. Patient with recent evaluation for chest pain, not thought to be concerning at the time and patient is not currently experiencing chest pain. 1. Seizure, POA, acute on chronic. Active -Patient given Diazepam 5 mg, and Lorazepam 2 mg IV in ED -Per Dr. Cordova's instruction he was administered 1g Fosphenytoin in the ED -Following loading dose continuing Phenytoin 100 mg TID -Continue home regimen of Topamax 200 mg PO BID -NPO in until neurological evaluation -NS @ 100 ml/hr while NPO -Plan is for Dr. Cordova to evaluate the patient in the AM 2. DM2, POA, chronic. Active -HA1c pending -Continue home Levemir 25U SubQ Qam -Lispro Low dose correctional scale -Continue to monitor BG -Continue home Gabapentin for peripheral neuropathy 3. HTN, POA, chronic. Active -Continue home Amlodipine 5 mg PO HS -Continue home Lisinopril 30 mg PO daily 4. Insomnia, POA, Chronic. Active -Continue home Trazodone 50 mg PO HS 5. Leukocytosis, POA, acute. Active -Likely stress reaction secondary to the above. -CXR normal 11/07/16 -Normal Diff -Patient does not relate any infectious type symptoms -Will repeat CBC in the AM Code Status: FULL CODE Disposition: Observation, anticipated length of stay <2 midnights especially given early AM admit, however should Dr. Cordova have any concerns requiring more extensive evaluation the patient may need to be converted to inpatient status. Pain Evaluation: Adequate Pain Control GI Prophylaxis: H2 vivian VTE Prophylaxis: Sub-Q Enoxaparin VTE Mechanical Devices: Intermittant Pneumatic CD Resuscitation Status: CPR: Attempt Resuscitation Attending Statement The patient was seen and examined together with Dr. Sanchez on 5/9 and I agree with the history, exam and plan as outlined in the note above. Duncan Sanchez DO November 09, 2016 00:15 Reese Kaur MD November 09, 2016 02:19
[2016-11-09] MEDS: 0.9% Sodium Chloride 1,000 ML IV SCH ×3 (00:19→20:00)
[2016-11-09] MEDS ORDERED: Glucose 40% Oral Gel 15 Gm Tube PO PRN (00:30)
[2016-11-09] MEDS ORDERED: LORA0.5T PO (02:12)
[2016-11-09] MEDS: Sodium Chloride LOK Flush 10 mL Syringe IVFLUSH SCH ×3 (02:15→16:10)
--- NOTE | 2016-11-09 02:30 | NUR ---
Admission: Pt admitted at 0128 to room 240-2 in stable condition. Seizure pads put in place. Vital signs stable. Initial assessment completed as charted. Pt placed on continuous telemetry monitoring: SR 70s noted per vp of technology. Pt c/o right-sided abdominal pain, Dr. Laura nieto and Tylenol ordered and administered. Will cont. to monitor.
--- NOTE | 2016-11-09 06:00 | NUR ---
SB: tool technician reported pt's HR to drop down to the high 30s unsustained. Pt HR 40s to 50s, SB per threat monitoring analyst.
[2016-11-09 06:17] LABS: BASOPHILS % (AUTO) 0.6 % (0-3); EOSINOPHILS % (AUTO) 3.2 % (0-5); MONOCYTES % (AUTO) 6.9 % (4-12); Mean Corpuscular Hemoglobin 30.9 pg (27.0-35.0); Mean Corpuscular Volume 90.4 fL (81-100); Platelet Count 301 bil/L (150-400)
[2016-11-09 06:32] LABS: Magnesium 1.9 mg/dL (1.6-2.6); Phosphorus 4.8 mg/dL (2.5-4.9)
--- NOTE | 2016-11-09 07:18 | NUR ---
Increase BUE tremors: Pt reports increase BUE tremors. Topamax administered. Unable to access Dilantin per the [employer] at this time. Updated oncoming RN. Pt stable at this time.
[2016-11-09] MEDS: Phenytoin 100 mg ER Capsule PO SCH ×3 (07:39→20:11)
[2016-11-09] MEDS ORDERED: Magnesium Sulf 2 Gm/50mL Water 2 GM in IV Premix 1 EACH IV ONE (07:50)
[2016-11-09] MEDS: Insulin GLARgine 100 Unit/mL Syringe SUBQ SCH (07:51)
[2016-11-09] MEDS: Insulin LISPRO 300 Unit/3 mL Inj SUBQ SCH ×4 (07:51→22:00)
[2016-11-09] MEDS ORDERED: Fosphenytoin Inj 300 mgPE in 0.9% Sodium Chloride 50 ML IV ONE (08:15)
--- NOTE | 2016-11-09 08:44 | NUR ---
Social Work-screening/ readiness for discharge: Data:EMR Reviewed. Pt is a 31 y/o male who was admitted on 11/09/16 for multiple seizures per H&P. Pt's insurance is [facility] and PCP is Michael Thomas MD. EMR Reviewed. SW met with pt at bedside to discuss discharge planning, SW role explained. Pt resides at home alone where he remains independent with ADLs. Pt does not drives and does not use any DME. SW discussed DPOA/ advanced directive paperwork, pt declining any information at this time. Pt states his friend will provide transport home at discharge. Dr. Cordova has been consulted to see pt today. Per RN notes, pt has been up independent in his room. SW provided phone number and plan on white board in room. No anticipated discharge needs. SW will continue to follow if needs arise. Assessment:pt who is independent at baseline. Plan:Pt to discharge home when medically stable via POV. No anticipated discharge needs. SW will continue to follow if needs arise. Marialuisa Rivera MSW
--- NOTE | 2016-11-09 09:42 | CONS ---
[address] [address] CONSULTATION REPORT PATIENT: WALDEMAR LINDSAY : 1985 MR#: [id number] ADMIT: 11/09/2016 JOB ID: [id number] DATE OF SERVICE: 11/09/2016 REQUESTING PROVIDER: Gareth Mayo DO CHIEF COMPLAINT: Multiple breakthrough seizures. Thank you, again, Dr. Gareth Mayo, for contacting me regarding this patient. I sincerely appreciate the request for consultation. HISTORY OF PRESENTING ILLNESS: The patient is a pleasant, 31-year-old, right-handed man, well known to me with multiple medical problems, including localization-related seizure disorder, migraine headaches without aura, and blepharospasm, who presented to the emergency department last night after multiple breakthrough seizures. He reports that he stopped Keppra due to side effects, and his last dose was 3-4 days ago. He denies any other changes in his medications. He denies any sleep deprivation or increased stress, or any other potential triggers such as alcohol or drug use for lowering his seizure threshold. Incidentally, he was seen in the emergency department for chest pain on November 07, 2016. He reports that he developed chest heaviness at work and came to the emergency department. He was seen there and evaluation was performed including an EKG which demonstrated normal sinus rhythm with benign borderline repolarization, with a rate of 90. A chest x-ray was negative, and he was sent home. He reports that he has not had any further chest pain. In the emergency department, he was noted to have a partial seizure, even after receiving a loading dose of fosphenytoin. Based on this, the decision was made to admit him to the hospital. We discussed checking a Dilantin level. I am giving him an additional dose of 300 mg IV fosphenytoin. The most of his seizures have occurred nocturnally and are localization-related and focal involving shaking of one extremity. He also has a history of polyps of the sinus cavities and deviated septum repair. Prior to admission, he reported that his last seizure was three days before. He was not able to tolerate Keppra due to severe side effects, and we weaned him off this medication. He is on a therapeutic dose of Topamax. However, it appears that he is not responsive to monotherapy alone and likely does require polytherapy. I did explain to him that I recommend that Dilantin be only used as bridging therapy, with the eventual goal of starting Lamictal. However, in this hospitalization, I do recommend that we optimize control of his seizures with Dilantin to the point where his Dilantin is therapeutic prior to being discharged from the hospital, and then he would see me as an outpatient and we would work on transitioning from Dilantin to Lamictal. We did discuss seizure precautions such as driving, heights and swimming alone. He did appear anxious at the bedside. REVIEW OF SYSTEMS: A complete review of systems was performed and was remarkable for above-noted. Otherwise unremarkable. No fevers, chills, nausea, vomiting. No recent illnesses. Chest pain has not returned. No neck pain or rigidity. PAST MEDICAL HISTORY: As above noted. ALLERGIES: No known drug allergies. MEDICATIONS: Include: 1. Amlodipine 10 mg p.o. q.h.s. 2. Gabapentin 1600 mg p.o. q.h.s. 3. Insulin 25 units subcutaneous in the morning. 4. Lisinopril 30 mg daily. 5. Topamax 200 mg p.o. b.i.d. 6. Trazodone 50 mg p.o. q.h.s. 7. Lorazepam 0.5 mg every 8 hours as needed for facial twitching. 8. Hydroxyzine p.r.n., taking 50 mg up to four times a day p.r.n. for itching. PAST MEDICAL HISTORY: Hypertension, focal nocturnal localization-related seizure disorder, principally nocturnal, anxiety disorder, insomnia, arachnoid cyst which appears stable based on the recent magnetic resonance imaging study of the brain. Seizure protocol performed on October 05, 2016. Polyps in the sinus cavities, and diabetes mellitus type 2. SURGICAL HISTORY: Status post inguinal hernia repair, status post deviated septum repair. FAMILY HISTORY: Significant for the patient's father having multiple myocardial infarctions, the first one at age 31. SOCIAL HISTORY: He does smoke marijuana a couple of times a month. No drugs or alcohol. He does work. LABORATORY STUDIES: WBC of 13.1, hemoglobin 15.4, hematocrit 45.0, and platelets of 364. Chemistries: Sodium 137, potassium was 4.6, chloride 102, bicarb 18, BUN 15, creatinine 0.81, and glucose 187. LFTs within normal limits. Topamax levels pending. PHYSICAL EXAMINATION: Temperature 36.5, pulse of 54, respiratory rate of 16, blood pressure 103/61, pulse oximetry 97% on room air. General: He is a well-developed, well-nourished man, mildly anxious. Appeared to have intermittent twitching of the left upper extremity. Head: Normocephalic, atraumatic. Neck is supple. No carotid bruits were auscultated. Negative Kernig. Negative Brudzinski. Chest: Clear to auscultation. No wheezes or rhonchi noted, or crackles. Heart: Regular rate and rhythm. Abdomen: Soft, nondistended, nontender. Extremities: No cyanosis, clubbing, or edema. Tongue unremarkable for any bite qiu. NEUROLOGIC EXAMINATION: Mental status: He is awake, alert, oriented x3. Speech clear and fluent with intact comprehension. There was no aphasia. Cranial nerves: Pupils equal, round, reactive to light. Extraocular movements were smooth and conjugate with no evidence of nystagmus. Face appeared symmetrical. Facial sensation was intact to light touch and temperature. Auditory sensation was intact to finger rub. Palatal elevation was symmetrical. Tongue was midline. Sternocleidomastoid and trapezii are 5/5 bilaterally. Motor: Normal tone and bulk. Muscle strength 5/5 throughout. Coordination: [id number] was intact, with a very mild degree of tremor in the left upper extremity. However, no dysmetria. Sensation intact to light touch and temperature. Deep tendon reflexes 2+ and symmetrical. Plantars were flexor bilaterally. Gait was deferred. IMPRESSION: Breakthrough seizures. He likely requires polypharmacy for treatment of seizure disorder. My recommendation is to check a Dilantin level, give an extra 300 mg of fosphenytoin, check another Dilantin level tomorrow, keep him overnight for observation, seizure and fall precautions. Continue Topamax. Awaiting Topamax level. Obtain electroencephalogram. Ativan IV push p.r.n. seizure. I do recommend that I be contacted if he has any breakthrough seizures. Based on his clinical history and examination, I do not suspect that his seizures are secondary to any infectious process such as meningitis or encephalitis. He did have a recent magnetic resonance imaging study of his brain that was performed a little over a month ago that revealed stable findings. He denies any headaches and denies any head trauma. There are no signs of infection based on his clinical examination and review of his laboratory studies. My suspicion is that his seizures do require dual anticonvulsant therapy. He was not able to tolerate Keppra due to sedation associated with this medication. Prior to this, his seizures have been well controlled on monotherapy being Topamax which was started, as he also has a history of migraine headaches. My goal will be to optimize control of his seizures with Topamax and Dilantin at this point, and initiate a transition to Lamictal as an outpatient once he has achieved seizure control with Topamax and Dilantin. Dilantin has multiple side effects, and my concern is, as he is young, that he is at high risk for developing these side effects, and therefore, would benefit from long-term stabilization on a newer agent. However, Lamictal does require a long escalation. Due to the risk of Adair Stas syndrome, and therefore, I do recommend present optimization of control with Topamax and Dilantin in addition gabapentin which he takes at night and he reports helps with sleep, and this is also an anticonvulsant. However, it is often not used for monotherapy. I will continue to follow. Thank you, again, Dr. Gareth Mayo, for kindly contacting me and requesting my consultation on this delightful patient. Please feel free to contact me with any questions or concerns.
[2016-11-09] MEDS: Ondansetron 2 mg/mL 2 mL Inj IVPUSH PRN ×2 (12:48→20:05)
--- NOTE | 2016-11-09 16:48 | NUR ---
Nausea/pain Pt. ate a cheeseburger at about 1240 and stated he began to feel some nausea and abdominal pain. Tylenol PRN was administered as well as zofran PRN for Pts. symptoms. Upon reassessment Pt. states his nausea went away but his pain level decreased from a 6/10 to a 5/10. After a couple hours Pt. states his pain level is now resolved at this time when I asked at 1630. Pt. could not eat his other cheeseburger, will continue to monitor.
--- NOTE | 2016-11-09 20:00 | NUR ---
Nausea Pt stated as having nausea and requested medication. Zofran 8mg given with good effect.
[2016-11-10] VITALS (10 sets, daily range): BP systolic 106–123; BP diastolic 64–77; PULSE 66–101; RESP 16–18; O2SAT 95–99
[2016-11-10] MEDS: Sodium Chloride LOK Flush 10 mL Syringe IVFLUSH SCH ×4 (00:40→23:52)
--- NOTE | 2016-11-10 05:41 | NUR ---
Neuro Pt was noted as having one episode of left hand tremors. Pt does not recall other seizure activity overnight and no others were seen.
--- NOTE | 2016-11-10 06:20 | NUR ---
Neuro Pt is c/o increased seizure activity (Upper extremity tremor). Pt requesting medication. No PRN medications available. MD nieto Addendum: 11/10/16 at 1023 by AZIZA CRAFT RN 1mg Ativan ordered and given with relief. Pt still states that he is having "nerves firing down his legs."
[2016-11-10 07:36] LABS: Magnesium 2.2 mg/dL (1.6-2.6)
[2016-11-10] MEDS: Insulin GLARgine 100 Unit/mL Syringe SUBQ SCH (08:01)
[2016-11-10] MEDS: Insulin LISPRO 300 Unit/3 mL Inj SUBQ SCH ×4 (08:11→22:00)
[2016-11-10] MEDS: Phenytoin 100 mg ER Capsule PO SCH ×3 (08:47→20:24)
--- NOTE | 2016-11-10 14:55 | NUR ---
Neuro Patient's left hand tremors increased noted. per patient report, "started with the legs and shaking of both arms and i was out." nursing aid and charge nurse at bed side. Paged Dr. Ogden and states," i am coming there." Dr. Ogden at bed side and new orders for PRN ativan now and dilantin after. Ativan and Dilantin given as ordered per Dr. Ogden. No new tremors noted and left hand still slightly tremors. c/o nausea, PRN anti emetic give as ordered with effective results. Call light with in reach for safety. Continue to monitor Seizures, vital signs, pain and safety. BP 134/79, pulse, 90, Temp 99.0, Oxygen 98-100% RR16..
[2016-11-10] MEDS ORDERED: Phenytoin 100 mg ER Capsule PO ONE (15:00)
[2016-11-10] MEDS: Ondansetron 2 mg/mL 2 mL Inj IVPUSH PRN (15:39)
--- NOTE | 2016-11-10 15:54 | PCM.PNMED ---
Subjective Date of Service November 10, 2016 Subjective Patient was seen and examined today at bedside this morning. This morning the patient stated that he was doing well however it was found out that he was not using the nicotine patch because he wanted to "quit cold turkey" without any help. Is expecting to the patient that he should not go without the nicotine patch at this time as the nicotine withdrawals could potentially stimulate seizure. The patient stated that he understood and would accept a nicotine patch today. Patient denied any chest pain, nausea, vomiting, diarrhea, constipation, and seizure activity. Patient did state that he was having some restless legs today. Exam Vital Signs Vital Sign - Last Date Time Temp Pulse Resp B/P Pulse Ox O2 Delivery O2 Flow Rate FiO2 11/10/16 12:16 36.7 82 16 119/77 97 Room Air Intake and Output 11/09/16 11/09/16 11/10/16 Cumulative From/Thru 15:00 23:00 07:00 11/08/16 21:43 - 11/10/16 05:30 Intake Total 1589 ml 2146 ml Output Total 1700 ml 2000 ml Balance -111 ml 146 ml Intake Oral 400 ml 400 ml IV Total 1189 ml 1746 ml Output Urine Total 1700 ml 2000 ml Exam Physical Exam: GEN: Patient was awake, alert, responding appropriately to questions HEENT: Pupils equal round and reactive to light, extraocular eye muscles intact , Neck soft supple, trachea midline, nomocephalic/atraumatic CV: +S1/S2, regular rate and rhythm, no murmurs auscultated Respiratory: CTAB, no wheezes, rales, rhonchi GI: +bowel sounds x4, soft, compressible, nontender to palpation EXT: no clubbing, cyanosis, edema Neuro: Cranial nerves II-XII grossly intact Psych: mood and affect were appropriate IVs and Medications Medications Reviewed: Medications were reviewed in detail Lab and Diagnostics Result Diagram: 11/09/16 0545 11/10/16 0607 Assessment & Plan Michael Bo is a 31 year old man with a PMH of Seizure, arachnoid cyst, DM2, and HTN who presents following multiple seizures in the past [address] Cordova is his neurologist and was contacted by the ED, he informed that to load the patient with fosphenytoin and that he would see the patient in the AM. Patient with recent evaluation for chest pain, not thought to be concerning at the time and patient is not currently experiencing chest pain. Seizure, POA, acute on chronic. Active -Patient given Diazepam 5 mg, and Lorazepam 2 mg IV in ED -Per Dr. Cordova's instruction he was administered 1g Fosphenytoin in the ED -Following loading dose increase Phenytoin 200 mg TID -Continue home regimen of Topamax 200 mg PO BID -Ativan 1 mg IV every 10 minutes when necessary seizure no more than 3 doses call physician after first dose is given -Neurology (Dr. Cordova) following DM2, POA, chronic. Active -HA1c 7.4 -Continue home Levemir 25U SubQ Qam -Lispro Low dose correctional scale -Continue to monitor BG -Continue home Gabapentin for peripheral neuropathy HTN, POA, chronic. Active -Continue home Amlodipine 5 mg PO HS -Continue home Lisinopril 30 mg PO daily Insomnia, POA, Chronic. Active -Continue home Trazodone 50 mg PO HS Leukocytosis, POA, acute. Active -Likely stress reaction secondary to the above. -CXR normal 11/07/16 -Normal Diff -Patient does not relate any infectious type symptoms -Will repeat CBC in the AM Code Status: FULL CODE Disposition: The patient was doing well and seemed to be stable; however, later this afternoon the patient did have another seizure. 2 mg of Ativan was given IV and the patient seemed to. The patient was also given 200 mg of Dilantin and his oral dose was increased to 200 mg 3 times a day. Patient will receive next dose of 200 mg of Dilantin tonight instead of 100mg. This plan was discussed with Dr. Cordova who currently agrees with the plan and will follow up with the patient later on today. GI Prophylaxis: H2 vivian VTE Prophylaxis: Sub-Q Enoxaparin VTE Mechanical Devices: Intermittant Pneumatic CD Resuscitation Status: CPR: Attempt Resuscitation Dalila Ogden DO November 10, 2016 15:54
--- NOTE | 2016-11-10 17:54 | NUR ---
Mentation/Neuro Patient is alert and oriented X3. Tremors improved with PRN Ativan and one time only Dilantin per doctor Ogden orders. patient ate dinner 100% with out difficulty swallowing. Neuro's WNL. Continue to monitor.
--- NOTE | 2016-11-10 19:08 | NUR ---
Tremors Patient c/o tremors to left hand and both feet. per assessment noticed tremors to left hand and both feet. Called and notified Dr. Ogden. Ativan given as ordered. report given to night nurse and aware of seizures and will follow up after 10 minutes of Ativan.
[2016-11-10] MEDS ORDERED: LORazepam 1 mg Tablet PO PRN (20:20)
--- NOTE | 2016-11-10 20:59 | NUR ---
Seizure Activity/Wheezing At change of shift, pt was experiencing tremors of left hand and BL feet. She gave 1mg Ativan. Per protocol, this nurse gave 2 more doses q10min since sxs were not decreasing, and pt had headache 8/10 with visible flushing of face and hot flashes. Blood glucose 123, VSS. Physician paged and Dr. Sarabia came to bedside and will continue to monitor during shift. Dr. Cordova came in and ordered Ativan q6hr PRN. Tylenol, cold washrags, and dim lighting given for headache. Pt checked on at least q10min at assessment of lung, BL wheezing at Exhalation & Inhalation. Pt stated he has asthma and has albuterol PRN at home, used rarely. No albuterol currently ordered. Paged physician for request of albuterol. Pt placed on 1 L NC for comfort. After checking back 15 min later, pt reported that it helped a little bit and made breathing easier. CAO decreased to 6/10, tremors in hand decreased (he credits that to playing on his computer as a distraction), BL feet tremors continue. Pt still feels some warmth and is using the cold washrags to help. I will continue to monitor frequently. Call light within reach and pt states he will use it if symptoms increase. Addendum: 11/10/16 at 2357 by GEORGE BLAKE RN Pt took NC off, Sats 95% on RA.
--- NOTE | 2016-11-10 23:11 | PROG NOTE ---
[address] [address] PROGRESS NOTE PATIENT: WALDEMAR LINDSAY : 1985 MR#: [id number] ADMIT: 11/09/2016 JOB ID: [id number] DATE: 11/10/2016 SUBJECTIVE: I received a call from Dr. Ogden stating that the patient had a breakthrough generalized tonic-clonic seizure. Presently awaiting Dilantin levels. Reports that he has intermittent tremors primarily involving the left upper extremity. He has also noted auras and anxiety attacks. As an outpatient, he does not take scheduled benzodiazepines. He reports that he will take them rarely if at all. OBJECTIVE/PHYSICAL EXAMINATION: Temperature 37.1, pulse 83, respiratory rate 16, blood pressure 117/77, pulse oximetry 96% on room air. General: He is a well-developed, well-nourished man, appears mildly anxious. He did have a cold rag over his head and reports that he has had a headache and hot flashes after the seizure. He also reports often experiencing a sensation of hot flashes in the setting of a seizure, either prior to the seizure or after the seizure. He does report that he continues to have intermittent twitching of left upper extremity, however, no alteration of mental status or consciousness. Head: Normocephalic, atraumatic. Neck is supple. No carotid bruits were auscultated. Negative Kernig. Negative Brudzinski. Chest: Clear to auscultation. Heart: Regular rate and rhythm. Abdomen: Soft, nondistended, nontender. Extremities: No cyanosis, clubbing, or edema. Neurologic examination: Mental status: He is awake, alert, oriented x3. Speech clear and fluent with intact comprehension. He did appear mildly anxious. There was no aphasia. Cranial nerves: Pupils equal, round, reactive to light. Extraocular movements were smooth and conjugate with no evidence of nystagmus. Face appeared symmetrical. Facial sensation was intact to light touch and temperature. Auditory sensation was intact to finger rub. Palatal elevation was symmetrical. Tongue was midline. There were no bite qiu noted. Sternocleidomastoid and trapezii are 5/5 bilaterally. Motor: Normal tone and bulk. Muscle strength 5/5 throughout. Coordination: [id number] was intact. There was a very mild degree of a postural tremor noted in the left upper extremity. No dysmetria was noted. Sensation: Intact to light touch and temperature. Deep tendon reflexes: 2+ and symmetrical. Plantars were flexor bilaterally. Gait was deferred. IMPRESSION: 1. Breakthrough seizure. 2. Localization-related seizure disorder. 3. Anxiety. RECOMMENDATIONS: I follow the patient closely in the clinic. Agree with increase of Dilantin to 200 mg t.i.d. given low Dilantin levels. This dose may need to be adjusted based on Dilantin levels. Awaiting Dilantin trough levels. He did receive an extra 300 mg IV of fosphenytoin yesterday. I do recommend optimizing control of seizures through therapeutic anticonvulsant levels of Dilantin and Topamax. He is also taking gabapentin. In order for gabapentin to be therapeutic large doses are often required, which are limited due to side effects, principally sedation and dizziness. In this case, I do recommend close monitoring of Dilantin levels until a therapeutic dose is reached. He reports that he has been tolerating the Dilantin and has not noted any side effects. We discussed management of his seizures in detail. We discussed seizure precautions. Ativan has been used IV push for prolonged seizures. He does report that he continues to have intermittent auras and intermittent twitching of his left upper extremity. He often reports that the intermittent twitching of his left upper extremity can lead to a generalized tonic-clonic seizure. However, based on his clinical examination he does not appear to be in status epilepticus. I do recommend low-dose p.r.n. lorazepam 0.5 mg every 6-8 hours as needed for development of auras or severe anxiety attacks. We did discuss the side effects of lorazepam in detail, including the risk of sedation and dependency. Will continue to follow. Thank you, again, Dr. Ogden, for allowing me to participate in the care of your patient. ABBEY
[2016-11-11] VITALS (9 sets, daily range): BP systolic 110–129; BP diastolic 72–84; PULSE 65–96; RESP 14–18; O2SAT 96–98
[2016-11-11] MEDS: LORazepam 1 mg Tablet PO PRN ×4 (04:45→23:05)
--- NOTE | 2016-11-11 05:50 | NUR ---
Tremors Assumed pt care at 0200, pt a/o able to make needs known, at 0445, pt c/o mild tremors starting on his legs and mild generalized pain, given PRN APAP and PO Ativan, rechecked, pt resting, noted decreased tremors. as of this time
[2016-11-11 06:46] LABS: BASOPHILS % (AUTO) 0.9 % (0-3); EOSINOPHILS % (AUTO) 3.2 % (0-5); Mean Corpuscular Hemoglobin 30.9 pg (27.0-35.0); Mean Corpuscular Volume 90.4 fL (81-100); NEUTROPHILS % (AUTO) 55.1 % (40-74); Platelet Count 340 bil/L (150-400)
[2016-11-11 07:07] LABS: Magnesium 2.1 mg/dL (1.6-2.6)
[2016-11-11] MEDS: Insulin LISPRO 300 Unit/3 mL Inj SUBQ SCH ×4 (07:35→21:30)
[2016-11-11] MEDS: Sodium Chloride LOK Flush 10 mL Syringe IVFLUSH SCH ×3 (07:41→23:32)
[2016-11-11] MEDS: Phenytoin 100 mg ER Capsule PO SCH ×3 (07:42→21:20)
[2016-11-11] MEDS: Insulin GLARgine 100 Unit/mL Syringe SUBQ SCH (08:37)
[2016-11-11] MEDS: Ondansetron 2 mg/mL 2 mL Inj IVPUSH PRN (09:36)
--- NOTE | 2016-11-11 12:36 | PCM.PNMED ---
Subjective Date of Service November 11, 2016 Subjective Patient was seen and examined at bedside today. Patient denies any chest pain, shortness of breath, nausea, vomiting, diarrhea. The patient did have a seizure yesterday at around 4 PM however the patient states he has not had another seizure since but has still had some tremors in the left arm and tingling in the lower extremities. The patient today was lethargic and complained of a headache. Overnight events: The patient stated that he did have a few more episodes of tremors but no further seizures. Exam Vital Signs Vital Sign - Last Date Time Temp Pulse Resp B/P Pulse Ox O2 Delivery O2 Flow Rate FiO2 11/11/16 12:24 37.1 85 16 122/79 97 Room Air Intake and Output 11/10/16 11/10/16 11/11/16 Cumulative From/Thru 15:00 23:00 07:00 11/08/16 21:43 - 11/11/16 04:48 Intake Total 475 ml 973 ml 350 ml 3944 ml Output Total 250 ml 600 ml 2850 ml Balance 225 ml 373 ml 350 ml 1094 ml Intake Oral 475 ml 973 ml 350 ml 2198 ml IV Total 0 ml 1746 ml Output Urine Total 250 ml 600 ml 2850 ml # Voids 2 2 5 9 # Bowel Movements 0 0 Exam Physical Exam: GEN: Patient was awake, responding appropriately to questions, lethargic HEENT: Pupils equal round and reactive to light, extraocular eye muscles intact , Neck soft supple, trachea midline, nomocephalic/atraumatic CV: +S1/S2, regular rate and rhythm, no murmurs auscultated Respiratory: CTAB, no wheezes, rales, rhonchi GI: +bowel sounds x4, soft, compressible, nontender to palpation EXT: no clubbing, cyanosis, edema Neuro: Cranial nerves II-XII grossly intact Psych: mood and affect were appropriate IVs and Medications Medications Reviewed: Medications were reviewed in detail Lab and Diagnostics Result Diagram: 11/11/16 0600 11/11/16 0600 Assessment & Plan Michael Bo is a 31 year old man with a PMH of Seizure, arachnoid cyst, DM2, and HTN who presents following multiple seizures in the past [address] Cordova is his neurologist and was contacted by the ED, he informed that to load the patient with fosphenytoin and that he would see the patient in the AM. Patient with recent evaluation for chest pain, not thought to be concerning at the time and patient is not currently experiencing chest pain. Seizure, POA, acute on chronic. Active -Patient given Diazepam 5 mg, and Lorazepam 2 mg IV in ED -Per Dr. Cordova's instruction he was administered 1g Fosphenytoin in the ED -Phenytoin increased to 200 mg TID -Continue home regimen of Topamax 200 mg PO BID -Ativan 1 mg IV every 10 minutes when necessary seizure no more than 3 doses call physician after first dose is given -Ativan 0.5 mg by mouth every 6 hours when necessary prodromal seizure symptoms -Neurology (Dr. Cordova) following -Dilantin level is 5.6 -Follow up Dilantin level morning DM2, POA, chronic. Active -HA1c 7.4 -Increase home Levemir to 30U SubQ Qam -Lispro Low dose correctional scale -Continue to monitor BG -Continue home Gabapentin for peripheral neuropathy HTN, POA, chronic. Active -Continue home Amlodipine 5 mg PO HS -Continue home Lisinopril 30 mg PO daily Insomnia, POA, Chronic. Active -Continue home Trazodone 50 mg PO HS Leukocytosis, POA, acute. (Resolved) -Likely stress reaction secondary to the above. -CXR normal 11/07/16 -Normal Diff -Patient does not relate any infectious type symptoms Code Status: FULL CODE Disposition: We will continue to increase the patient's Dilantin as necessary. We will repeat the patient's Dilantin level in the morning. Once the patient's Dilantin levels are therapeutic and he is no longer having seizures that we will consider discharging the patient. Patient will mostly be present for the next 2-3 days. GI Prophylaxis: H2 vivian VTE Prophylaxis: Sub-Q Enoxaparin VTE Mechanical Devices: Intermittant Pneumatic CD Resuscitation Status: CPR: Attempt Resuscitation Dalila Ogden DO November 11, 2016 12:36
--- NOTE | 2016-11-11 15:20 | NUR ---
Reported seizure activity/headache Pt believes he had seizure activity while he was sleeping and feels "spacey." Also c/o a headache that he has had since being admitted. Tylenol mostly ineffective. Pt is not currently tremulous, A&Ox3. Hospitalist notified.
[2016-11-11] MEDS ORDERED: Fosphenytoin Inj 300 mgPE in 0.9% Sodium Chloride 50 ML IV ONE (19:45)
[2016-11-12] VITALS (7 sets, daily range): BP systolic 118–142; BP diastolic 78–88; PULSE 75–88; RESP 15–18; O2SAT 97–100
--- NOTE | 2016-11-12 04:20 | NUR ---
NEURO As of 419, pt has had no objective symptoms of seizure activity. Gave pt normal HS meds with one time dose of IV Fosphenytoin and gave 0.5 mg ativan at 2300 keeping to q6h schedule. Pt has been sleeping since midnight. Hourly rounding in place.
[2016-11-12] MEDS: LORazepam 1 mg Tablet PO PRN ×3 (05:16→23:49)
--- NOTE | 2016-11-12 05:40 | PROCED ---
[address] [address] EEG PATIENT: WALDEMAR LINDSAY : 1985 MR#: [id number] ADMIT: 11/09/2016 JOB ID: [id number] DATE OF SERVICE: 11/09/2016 HISTORY: The patient is a 31-year-old man with seizures. TECHNICAL DESCRIPTION: This digital EEG was recorded using 25 scalp and ear, and two EKG electrodes. It was reviewed in bipolar and referential montages following reformatting in the 10[employer]de [employer] System. During the recording, the patient was noted to be awake, drowsy and asleep. The background was composed of a 9 hertz, 20-50 microvolts, symmetrical and reactive posterior dominant rhythm that attenuated with eye opening. The rest of the background was composed of low voltage faster frequencies. There was an intermittent left upper extremity tremor noted throughout this recording and was present even during sleep. However, there was no electrographic correlate that appeared ictal in nature. There were no seizures seen. Hyperventilation was performed for 3 minutes with fair effort. However, no slowing of the background rhythm was noted. No frontally predominant buildup was noted. Photic stimulation from 1-30 hertz did not elicit any photic driving response. It did elicit an episode of whole body shaking. Sleep was characterized by the attenuation of the alpha rhythm and the appearance of symmetrical vertex waves, heralding stage 1 of sleep. This is followed by the development of symmetrical sleep spindles, heralding stage 2 of sleep. The EKG rhythm strip revealed a heart rate of 60-80 beats per minute with no apparent arrhythmias. There were no focal, lateralized, or epileptiform discharges noted. IMPRESSION: This electroencephalogram performed in the awake, drowsy and asleep states is within normal limits. The tremors of the left upper extremity were not correlated with any electrocortical/electrographic activity. Clinical correlation is advised.
[2016-11-12] MEDS: Insulin LISPRO 300 Unit/3 mL Inj SUBQ SCH ×4 (08:00→21:25)
[2016-11-12] MEDS: Sodium Chloride LOK Flush 10 mL Syringe IVFLUSH SCH ×3 (08:30→23:49)
[2016-11-12] MEDS: Phenytoin 100 mg ER Capsule PO SCH ×4 (08:59→20:32)
[2016-11-12] MEDS: Insulin GLARgine 100 Unit/mL Syringe SUBQ SCH (08:59)
[2016-11-12] MEDS ORDERED: MGPE IV ONE (12:10)
[2016-11-12] MEDS ORDERED: SODIUM CHLORIDE 0.9% IV ONE (12:10)
[2016-11-12] MEDS ORDERED: FOSPHENYTOIN IV ONE (12:10)
--- NOTE | 2016-11-12 14:09 | CONS ---
[address] [address] CONSULTATION REPORT PATIENT: WALDEMAR LINDSAY : 1985 MR#: [id number] ADMIT: 11/09/2016 JOB ID: [id number] DATE OF SERVICE: 11/12/2016 SUBJECTIVE: He does report that he had a generalized tonic-clonic seizure this morning. PHYSICAL EXAMINATION: Vital signs: Temperature 36.7, pulse 83, respiratory rate of 16, blood pressure 123/83, pulse oximetry 97% on room air. General: He is a well-developed, well-nourished man in no acute distress. Head: Normocephalic, atraumatic. Neck supple. No carotid bruits were auscultated. He appeared far less tremulous today. Actually I did not appreciate a tremor at all today. He also appeared less anxious. Head: Normocephalic, atraumatic. Neck supple. No carotid bruits were auscultated. Negative Kernig. Negative Brudzinski. Chest clear to auscultation. Heart: Regular rate and rhythm. Abdomen: Soft, nondistended, nontender. Extremities: No cyanosis, clubbing, or edema. NEUROLOGIC EXAMINATION: Mental status: He is awake, alert, and oriented x3. Speech is clear and fluent with intact comprehension. There was no aphasia. He appeared less anxious. He did appear disappointed when I did mention that I do recommend he stay one more day. Cranial nerves: Pupils equal, round, and reactive to light. Extraocular movements were smooth and conjugate with no evidence of nystagmus. Face appeared symmetrical. Facial sensation was intact to light touch and temperature. Auditory sensation was intact to finger rub. Palatal elevation was symmetrical. Tongue was midline. Sternocleidomastoid and trapezius were 5/5 bilaterally. Motor: Normal tone and bulk. Muscle strength 5/5 throughout. Coordination: [id number] was intact bilaterally. No dysmetria was noted. Sensation: Intact to light touch and temperature. Deep tendon reflexes 2+ and symmetrical. Plantars were flexor bilaterally. Gait was deferred. IMPRESSION: 1. Localization-related seizure disorder with breakthrough seizures. 2. Tremors (no electrocortical correlation appreciated on the EEG) r/o anxiety vs. psychogenic nonepileptiform seizure disorder. 3. Anxiety. 4. Today, Dilantin level remained low, 9.4. RECOMMENDATIONS: Given that he reportedly had a generalized tonic-clonic seizure this morning, I recommend IV fosphenytoin 1000 mg and repeat Dilantin level tomorrow morning. If he does not have a breakthrough generalized tonic-clonic seizure and his Dilantin level is within the reference range of 10-20, I do recommend that he be discharged home, at least from a neurologic perspective, and to follow up with Dr. Thomas in one week. I do recommend that he also follow up with me within one month in the clinic. I also recommend that he obtain Dilantin levels and basic laboratory work, CBC with diff, and CMP with LFTs in one week. I recommend close monitoring of his Dilantin levels and adjustment of his Dilantin dose as needed based on the levels. We discussed seizure precautions. We discussed the plan in detail. Reviewed side effects in detail including the risk of a rash. Fall, driving, heights, and swimming alone precautions were discussed. Questions were sought and answered. The patient expressed understanding. Patient education was provided. Thank you, again, Dr. Ogden, for allowing me to participate in the care of your patient. Please feel free to contact me with any questions or concerns. ABBEY
--- NOTE | 2016-11-12 14:23 | PCM.PNMED ---
Subjective Date of Service November 12, 2016 Subjective Patient was seen and examined at bedside today. Patient denies any chest pain, shortness of breath, nausea, vomiting, diarrhea. Patient currently complains of headache and states that he had a seizure early this morning. Overnight events: None Exam Vital Signs Vital Sign - Last Date Time Temp Pulse Resp B/P Pulse Ox O2 Delivery O2 Flow Rate FiO2 11/12/16 10:55 75 11/12/16 08:33 36.7 16 123/83 97 Room Air Intake and Output 11/11/16 11/11/16 11/12/16 Cumulative From/Thru 15:00 23:00 07:00 11/08/16 21:43 - 11/12/16 04:45 Intake Total 1440 ml 784 ml 6168 ml Output Total 2850 ml Balance 1440 ml 784 ml 3318 ml Intake Oral 1440 ml 720 ml 4358 ml IV Total 64 ml 1810 ml Output Urine Total 2850 ml # Voids 4 3 16 # Bowel Movements 0 Exam Physical Exam: GEN: Patient was awake, alert, responding appropriately to questions HEENT: Pupils equal round and reactive to light, extraocular eye muscles intact , Neck soft supple, trachea midline, nomocephalic/atraumatic CV: +S1/S2, regular rate and rhythm, no murmurs auscultated Respiratory: Positive wheezing no rales or rhonchi wheezing does seem to be improving since smoking cessation upon admission GI: +bowel sounds x4, soft, compressible, nontender to palpation EXT: no clubbing, cyanosis, edema Neuro: Cranial nerves II-XII grossly intact Psych: mood and affect were appropriate IVs and Medications Medications Reviewed: Medications were reviewed in detail Lab and Diagnostics Result Diagram: 11/11/16 0600 11/12/16 0535 Assessment & Plan Michael Bo is a 31 year old man with a PMH of Seizure, arachnoid cyst, DM2, and HTN who presents following multiple seizures in the past [address] Campo is his neurologist and was contacted by the ED, he informed that to load the patient with fosphenytoin and that he would see the patient in the AM. Patient with recent evaluation for chest pain, not thought to be concerning at the time and patient is not currently experiencing chest pain. Seizure, POA, acute on chronic. Active -Patient given Diazepam 5 mg, and Lorazepam 2 mg IV in ED -Per Dr. Campo's instruction he was administered 1g Fosphenytoin in the ED -Phenytoin increased to 200 mg TID -Continue home regimen of Topamax 200 mg PO BID -Ativan 1 mg IV every 10 minutes when necessary seizure no more than 3 doses call physician after first dose is given -Ativan 0.5 mg by mouth every 6 hours when necessary prodromal seizure symptoms -Neurology (Dr. Campo) following -Dilantin level is 5.6(11/11/16) repeat 9.4 (11/12/16) -Another 1000 mg a fosphenytoin given today via recommendation from Dr. Campo -Follow up Dilantin level morning Headache -Continue Tylenol when necessary -Start sumatriptan DM2, POA, chronic. Active -HA1c 7.4 -Increase home Levemir to 30U SubQ Qam -Lispro Low dose correctional scale -Continue to monitor BG -Continue home Gabapentin for peripheral neuropathy HTN, POA, chronic. Active -Continue home Amlodipine 5 mg PO HS -Continue home Lisinopril 30 mg PO daily Insomnia, POA, Chronic. Active -Continue home Trazodone 50 mg PO HS Leukocytosis, POA, acute. (Resolved) -Likely stress reaction secondary to the above. -CXR normal 11/07/16 -Normal Diff -Patient does not relate any infectious type symptoms Code Status: FULL CODE Disposition: The patient's case was discussed with Dr. campo today. The patient's Dilantin levels are still not therapeutic and 1000 mg of hospital and was also given. Patient will continue on Dilantin 200 mg 3 times a day as he does seem to be tolerating the medication at this time with no side effects. Once the patient's levels of Dilantin are therapeutic and he no longer has seizure activity and he will be ready for discharge home. The patient will follow-up with his PCP within [address] campo's office. GI Prophylaxis: H2 vivian VTE Prophylaxis: Sub-Q Enoxaparin VTE Mechanical Devices: Intermittant Pneumatic CD Resuscitation Status: CPR: Attempt Resuscitation Dalila Ogden DO November 12, 2016 14:23
--- NOTE | 2016-11-12 15:55 | NUR ---
Social Work: Brief Note EMR reviewed. Patient was discussed in daily rounds and patient's nurse stated that patient' Dilantin levels are still not therapeutic. Physicians documentation dated 11/12 states, "Once the patient's levels of Dilantin are therapeutic and he no longer has seizure activity and he will be ready for discharge home". Patient will likely discharge home no needs. Patient does not have any needs at this time. SW will continue to follow and assist patient throughout stay. Plan: patient will likely discharge home when medically stable. SW will continue to follow and assist patient throughout stay. Anastacia Vick, FIDEL, ACM
[2016-11-12] MEDS: Ondansetron 2 mg/mL 2 mL Inj IVPUSH PRN (17:36)
--- NOTE | 2016-11-12 18:07 | NUR ---
Confusion/Aura Pt c/o sudden confusion, felt "very spaced out". Pt then had normal aura w/ leg movement, given 1mg ativan, pt did not have seizure, pt said "you caught it early enough". Dr Ogden pagevance, no response at this time.
[2016-11-13 00:15] VITALS: PULSE 81
--- NOTE | 2016-11-13 03:33 | NUR ---
INSOMNIA Pt c/o not being able to sleep. Received all regular HS medications. At 0200 on hourly rounds, asked pt if he wanted anything else to help him sleep, pt stated "Whatever you want to do." This RN said it was up to him as he is the pt and he replied "I really don't care." At 0300 pt walked around halls again and said he would try to sleep after that. Currently no s/sx of seizure activity. Hourly rounding still in effect.
[2016-11-13 06:23] VITALS: BP 123/85; PULSE 79; RESP 17; O2SAT 99
--- NOTE | 2016-11-13 06:37 | NUR ---
TREMORS At 0615, pt reported mild tremors in l. arm, visible to this RN. Gave 1 mg ativan. No tremors after. Pt has no complaints.
[2016-11-13] MEDS: Insulin LISPRO 300 Unit/3 mL Inj SUBQ SCH (08:00)
[2016-11-13 08:11] VITALS: BP 119/78; PULSE 91; RESP 16; O2SAT 97
[2016-11-13] MEDS: Insulin GLARgine 100 Unit/mL Syringe SUBQ SCH (08:22)
[2016-11-13] MEDS: Phenytoin 100 mg ER Capsule PO SCH (08:24)
[2016-11-13] MEDS: Sodium Chloride LOK Flush 10 mL Syringe IVFLUSH SCH (08:24)
[2016-11-13 09:43] VITALS: PULSE 83
[2016-11-13] MEDS ORDERED: NICO1PAT6 TOPICAL (11:26)
[2016-11-13] MEDS ORDERED: INSU100V4 SUBQ (11:26)
[2016-11-13] MEDS ORDERED: LORA0.5T PO (11:26)
[2016-11-13] MEDS ORDERED: PHN100C PO (11:26)
--- NOTE | 2016-11-13 11:27 | NUR ---
Social Work: Discharge Data: Pt is on day 4 of hospitalization. EMR reviewed. D/C orders are in. No d/c planning needs at this time. CHARGING CRANE OPERATOR will continue to follow if needs arise. Assessment: Pt who is independent at baseline. Plan: Pt will d/c home via POV today. No d/c planning needs at this time. CHARGING CRANE OPERATOR will continue to follow if needs arise. YOLANDA Simon
[2016-11-13] MEDS ORDERED: NIC7 TRANSDERM (11:28)
[2016-11-13] MEDS ORDERED: NICO1PAT5 TRANSDERM (11:28)
--- NOTE | 2016-11-13 11:32 | PCM.DIMED ---
Discharge Instructions Date of Service November 13, 2016 Dates of Hospitalization November 09, 2016 at 00:49 Discharge Diagnosis Discharge Diagnosis Seizures Hypertension Diabetes Insomnia Headache Leukocytosis (resolved) Nicotine dependence Diet Diabetic Activity Other (no driving) Call your provider Shortness of breath, Chest pain, Weakness (unilateral), Other (uncontrollable seizures) Patient Instructions Please follow up with Dr. Thomas next week to have your Dilantin levels checked In 2 weeks please follow up with Dr. Cordova Follow-up Provider: Michael Thomas MD Follow-up with PCP in: 1 week (if an appointment has not been a physical to schedule an appointment) Provider: Darshan Cordova MD Follow-up in: 2 weeks (if an appointment has not been a physical to schedule an appointment) Dalila Ogden DO November 13, 2016 11:32
--- NOTE | 2016-11-13 11:38 | PCM.DC.MED ---
Discharge Summary Date of Service November 13, 2016 Dates of Hospitalization Date of Hospital Admission November 09, 2016 at 00:49 Date of Discharge: November 13, 2016 Providers: Admitting Physician: Reese Kaur MD Primary Care Physician: Michael Thomas MD Attending Physician: Reese Kaur MD Diagnosis at Time of Discharge Diagnosis at Time of Discharge Seizures Hypertension Diabetes Insomnia Headache Leukocytosis (resolved) Nicotine dependence Brief History Michael Bo is a 31 year old man with a PMH of seizure(focal nocturnal), arachnoid cyst, sinus polyps, DM2, Tremor, and insomnia who presents having had 3 seizures in the past 24 hours. He relates that he had 2 seizures prior to presentation and likely had another while in the ED. He further relates that recently he has been experiencing chest pain for which he has sought evaluation in the [facility] ED yesterday, this evaluation failed to reveal any concerning pathology. He has had perhaps 2 other seizures over the past 2 weeks, after not having any seizures for the past 2-3 years. He is a patient of Dr. Campo who recently prescribed Keppra, which the patient was unable to tolerate secondary to somnolence. He states that he does not currently feel any chest pain. He generally feels a pain and stiffness in his neck prior to the onset of seizure. He has a small amplitude medium frequency tremor at baseline of uncertain etiology. He currently denies headache, and changes in vision or sensation, chest pain, SOB, or anxiety. His blood sugars have not been grossly abnormal and he is not able to identify any acute changes in his life beyond the recent failed induction of Keppra which was after he began having seizures again. The ED contacted Dr. Campo, who instructed us to begin a loading and maintenance dose of Fosphenytoin, and he will see the patient in the AM. Hospital Course Michael Bo is a 31 year old man with a PMH of Seizure, arachnoid cyst, DM2, and HTN who presents following multiple seizures in the past [address] Campo is his neurologist and was contacted by the ED, he informed that to load the patient with fosphenytoin and that he would see the patient in the AM. Patient with recent evaluation for chest pain, not thought to be concerning at the time and patient is not currently experiencing chest pain. Patient presented to the emergency room with the complaint of intractable seizures. The patient has been a little difficult in order to manage his seizure activity and has taken a little longer to increase the patient's Dilantin levels to therapeutic. The patient's Dilantin level upon arrival was 5.6 after receiving 1 g of fosphenytoin in the ED. The patient has had several seizures since being admitted however he has not had any seizures in the last 24 hours after increasing his Dilantin, the patient received another gram of fosphenytoin from Dr. Campo yesterday. This morning the patient's Dilantin level is therapeutic at 17.1.The patient will now be on Dilantin 200 mg 3 times a day in addition to Topamax 200 mg twice a day, and gabapentin 1600 mg daily. The patient has been given 0.5 mg of Ativan to be taken every 6 hours as needed for Aura and agitation. The patient has been instructed to follow up with his PCP next week in order to obtain Dilantin levels. And then he will follow up in [address] campo he will continue his management of his seizures. It was noted that the patient's blood sugars were still running a little high and his hemoglobin A1c was 7.4. His nighttime dose of Levemir as been increased from 25 units to 30 units. The patient's morning blood glucose was closer to therapeutic ranges. The patient is being discharged home in stable condition. For full hospital course please see below: Seizure, POA, acute on chronic. Active -Patient given Diazepam 5 mg, and Lorazepam 2 mg IV in ED -Per Dr. Campo's instruction he was administered 1g Fosphenytoin in the ED -Phenytoin increased to 200 mg TID -Continue home regimen of Topamax 200 mg PO BID -Ativan 1 mg IV every 10 minutes when necessary seizure no more than 3 doses call physician after first dose is given -Ativan 0.5 mg by mouth every 6 hours when necessary prodromal seizure symptoms -Neurology (Dr. Campo) following -Dilantin level is 5.6(11/11/16) repeat 9.4 (11/12/16) -Another 1000 mg a fosphenytoin given today via recommendation from Dr. Campo -Follow up Dilantin level morning Headache -Continue Tylenol when necessary -Start sumatriptan DM2, POA, chronic. Active -HA1c 7.4 -Increase home Levemir to 30U SubQ Qam -Lispro Low dose correctional scale -Continue to monitor BG -Continue home Gabapentin for peripheral neuropathy HTN, POA, chronic. Active -Continue home Amlodipine 5 mg PO HS -Continue home Lisinopril 30 mg PO daily Insomnia, POA, Chronic. Active -Continue home Trazodone 50 mg PO HS Leukocytosis, POA, acute. (Resolved) -Likely stress reaction secondary to the above. -CXR normal 11/07/16 -Normal Diff -Patient does not relate any infectious type symptoms Code Status: FULL CODE Disposition: The patient's case was discussed with Dr. campo today. The patient's Dilantin levels are still not therapeutic and 1000 mg of hospital and was also given. Patient will continue on Dilantin 200 mg 3 times a day as he does seem to be tolerating the medication at this time with no side effects. Once the patient's levels of Dilantin are therapeutic and he no longer has seizure activity and he will be ready for discharge home. The patient will follow-up with his PCP next week and within [address] campo's office. Exam Vital Signs (Last) Date Time Temp Pulse Resp B/P Pulse Ox O2 Delivery O2 Flow Rate FiO2 11/13/16 09:43 83 11/13/16 08:11 36.8 16 119/78 97 Room Air Exam Physical Exam: GEN: Patient was awake, alert, responding appropriately to questions HEENT: Pupils equal round and reactive to light, extraocular eye muscles intact , Neck soft supple, trachea midline, nomocephalic/atraumatic CV: +S1/S2, regular rate and rhythm, no murmurs auscultated Respiratory: CTAB, no wheezes, rales, rhonchi GI: +bowel sounds x4, soft, compressible, nontender to palpation EXT: no clubbing, cyanosis, edema Neuro: Cranial nerves II-XII grossly intact Psych: mood and affect were appropriate Test 11/08/16 21:50 11/09/16 05:45 11/10/16 06:07 11/11/16 06:00 Hemoglobin A1c 7.4% (4.8-5.6) Hold Warren Top Tube Received (Received) Topiramate Level 8.9ug/mL (2.0-25.0) Phosphorus Level 4.8mg/dL (2.5-4.9) Gabapentin Level 3.1ug/mL (4.0-16.0) Thyroid Stimulating Hormone (TSH) 1.250uIU/mL (0.450-4.500) White Blood Count 8.1th/mm3 (3.8-10.1) Red Blood Count 5.34mil/mm3 (4.40-5.80) Hemoglobin 16.5g/dL (13.8-17.2) Hematocrit 48.3% (41.0-50.0) Mean Corpuscular Volume 90.4fL (81-100) Mean Corpuscular Hemoglobin 30.9pg (27.0-35.0) Mean Corpuscular Hemoglobin Concent 34.2% (32.0-37.0) Red Cell Distribution Width 12.9% (12.3-15.4) Platelet Count 340bil/L (150-400) Neutrophils (%) (Auto) 55.1% (40-74) Lymphocytes (%) (Auto) 33.3% (14-46) Monocytes (%) (Auto) 7.0% (4-12) Eosinophils (%) (Auto) 3.2% (0-5) Basophils (%) (Auto) 0.9% (0-3) Magnesium Level 2.1mg/dL (1.6-2.6) Total Bilirubin 0.3mg/dL (0.0-1.2) Aspartate Amino Transf (AST/SGOT) 16U/L (0-50) Alanine Aminotransferase (ALT/SGPT) 12U/L (0-44) Alkaline Phosphatase 65U/L (25-150) Total Protein 7.5g/dL (6.4-8.4) Albumin 4.7g/dL (3.4-5.0) Test 11/12/16 05:35 11/13/16 06:00 Sodium Level 141mEq/L (134-144) Potassium Level 5.2mEq/L (3.5-5.2) Chloride Level 103mEq/L (97-108) Carbon Dioxide Level 22mmol/L (18-29) Blood Urea Nitrogen 11mg/dL (6-20) Creatinine 0.83mg/dL (0.76-1.27) Estimat Glomerular Filtration Rate 114mL/min (>59) Glucose Level 109mg/dL (60-99) Calcium Level 10.4mg/dL (8.5-10.1) Phenytoin (Dilantin) Level 17.1uG/mL (10.0-20.0) Discharge Medications Discharge Medications Amlodipine (Amlodipine) 5 Mg Tablet 10 MG PO HS (Reported) Gabapentin (Gabapentin) 800 Mg Tablet 1,600 MG PO HS (Reported) Insulin Detemir (Levemir U100 Insulin Vial) 100 Unit/1 Ml Vial 25 UNITS SUBQ at bed time Prescribed by: DALILA OGDEN DO Lisinopril (Lisinopril) 30 Mg Tablet 30 MG PO DAILY (Reported) Nicotine 14 mg/24 hr Patch (Nicotine 14 mg/24 hr Patch) 1 Each Patch.td24 1 PATCH TRANSDERM DAILY Start using these after the 21mg patches run out. Prescribed by: DALILA OGDEN DO Nicotine 21 mg/24 hr Patch (Nicotine 21 mg/24 hr Patch) 1 Each Patch.td24 1 PATCH TOPICAL Q24H Prescribed by: DALILA OGDEN DO Nicotine 7 mg/24 hr Patch (Nicotine 7 mg/24 hr Patch) 1 Each Patch.td24 1 PATCH TRANSDERM DAILY Start using these after the 14mg patches run out. Prescribed by: DALILA OGDEN DO Phenytoin Sodium ER (Dilantin) 100 Mg Capsule 200 MG PO TID Prescribed by: DALILA OGDEN DO Topiramate (Topiramate) 25 Mg Tablet 200 MG PO BID (Reported) Trazodone (Trazodone) 50 Mg Tablet 100 MG PO HS (Reported) As needed Lorazepam (Lorazepam) 0.5 Mg Tablet 0.5 MG PO every 6 hours PRN PRN Anxiety or auras Prescribed by: DALILA OGDEN DO Followup Plan Discharge Diet: Diabetic Discharge Activity: Other (no driving) Patient Instructions Please follow up with Dr. Thomas next week to have your Dilantin levels checked In 2 weeks please follow up with Dr. Campo Follow-up Provider: Michael Thomas MD Follow-up with PCP in: 1 week (if an appointment has not been a physical to schedule an appointment) Provider: Darshan Campo MD Follow-up in: 2 weeks (if an appointment has not been a physical to schedule an appointment) Time spent Greater than 35 minutes Dalila Ogden DO November 13, 2016 11:38
--- NOTE | 2016-11-13 14:36 | NUR ---
Discharge Pt. discharged to home at 1220 in stable condition. Friend present to drive. IV and tele dc'd prior to discharge. All belongings, home meds, scripts and instructions with pt. No questions or concerns at this time.
== END 2016-11-13 12:20 | disposition home or self-care (01) | DRG 101 ==
LOC: SED 21:39 → MOC 11-09 00:49 → OBSVTOIN 11-09 00:49 → MOC 11-09 01:24
PROVIDERS: ADMIT Hospitalist; ATTEND Hospitalist
PROC: 4A00X4Z Measurement of Central Nervous Electrical Activity, External Approach (ICD-10-PCS; principal; 2016-11-09)
DX: G40.909 Epilepsy, unspecified, not intractable, without status epilepticus (principal); E11.42 Type 2 diabetes mellitus with diabetic polyneuropathy; F17.200 Nicotine dependence, unspecified, uncomplicated; G47.00 Insomnia, unspecified; I10 Essential (primary) hypertension; Z79.4 Long term (current) use of insulin

== ENCOUNTER 2016-11-15 17:44 | Observation (INO) | payer OTHER ==
[~2016-11-15] VITALS: Ht 182.9 cm; Wt 103.0 kg
[~2016-11-15 17:44] MED LIST changes: -AMOX-366 PO; -HYDR50TA76 PO; +LORA0.5T PO; +NIC7 TRANSDERM; +NICO1PAT5 TRANSDERM; +NICO1PAT6 TOPICAL; +PHN100C PO
[2016-11-15 17:54] VITALS: BP 157/111; PULSE 120; RESP 18; O2SAT 99
[2016-11-15] MEDS ORDERED: 0.9% Sodium Chloride 1,000 ML IV ONE (19:17)
[2016-11-15] MEDS ORDERED: Ondansetron 2 mg/mL 2 mL Inj IVPUSH ONE (19:20)
[2016-11-15] MEDS ORDERED: Pantoprazole 4 mg/mL 10 mL Inj IVPUSH ONE (19:20)
--- NOTE | 2016-11-15 19:22 | ED.REPORT ---
HPI-General Illness Date of Service November 15, 2016 ED Provider: Amaury Treviño MD The patient is a 31 year old male with history of epilepsy, hypertension, IDDM, depression, anxiety, and PTSD, who presents to the emergency department with multiple complaints. He was recently admitted for seizures and was discharged home on Monday. Many of his medications were altered and he was sent home on Dilantin. He complains of feeling "spacey," depressed, suicidal, and confused. He has also experienced problem walking (off-balance), upper extremity "shaking, " nausea, vomiting, and skin rash. He has not smoked tobacco since prior to his recent admission. He does smoke marijuana. Nursing Notes Stated Complaint: TREMORS AND BACK,CONFUSSION Chief Complaint: General Complaint Nursing Notes Reviewed: Yes Allergies: Coded Allergies: No Known Allergies (Verified Allergy, Unknown, 11/07/16) Scheduled Amlodipine (Amlodipine) 5 Mg Tablet 10 MG PO HS Gabapentin (Gabapentin) 800 Mg Tablet 1,600 MG PO HS Insulin Detemir (Levemir U100 Insulin Vial) 100 Unit/1 Ml Vial 25 UNITS SUBQ at bed time Lisinopril (Lisinopril) 30 Mg Tablet 30 MG PO DAILY Nicotine 14 mg/24 hr Patch (Nicotine 14 mg/24 hr Patch) 1 Each Patch.td24 1 PATCH TRANSDERM DAILY Start using these after the 21mg patches run out. Nicotine 21 mg/24 hr Patch (Nicotine 21 mg/24 hr Patch) 1 Each Patch.td24 1 PATCH TOPICAL Q24H Nicotine 7 mg/24 hr Patch (Nicotine 7 mg/24 hr Patch) 1 Each Patch.td24 1 PATCH TRANSDERM DAILY Start using these after the 14mg patches run out. Phenytoin Sodium ER (Dilantin) 100 Mg Capsule 200 MG PO TID Topiramate (Topiramate) 25 Mg Tablet 200 MG PO BID Trazodone (Trazodone) 50 Mg Tablet 100 MG PO HS Scheduled PRN Lorazepam (Lorazepam) 0.5 Mg Tablet 0.5 MG PO every 6 hours PRN PRN Anxiety or auras General Time Seen by MD: 18:47 Chief Complaint Multip medical complaints Hx Obtained From: Patient Arrived By: Walk-in Sudden in Onset?: No Onset Occurred: 3 days ago Symptom Duration: Since onset Severity: Current: No pain currently Severity: Maximum: No pain Recent Healthcare: Recent doctor visit, Recent hospitalization Similar Sx Previous: No Past Medical History Past Medical History HTN Seizures (focal nocturnal) Anxiety Depression insomnia arachnoid cyst polyps in sinus cavities Reports: Diabetes mellitus Past Surgical History Inguinal hernia repair Deviated septum repair Family History noncontributory Smoking History Current Every Day Smoker Social History Alcohol Use: Denies alcohol use Drug Use: THC Other Social History: Good social support, Local resident Ambulatory Status Independent Review of Systems Full Review of Systems GI: Reports: Nausea, Vomiting Skin: Reports Rash Neurologic: Reports: Problem walking (off-balance), Shaking Psychiatric: Reports: Confusion, Depression, Suicidal ideation Complete sys rev & neg: except as marked. Physical Exam Vital Signs Vital Signs Date Time Temp Pulse Resp B/P Pulse Ox O2 Delivery O2 Flow Rate FiO2 11/15/16 21:30 37.3 118 18 148/98 99 Room Air 11/15/16 17:54 37.4 120 18 157/111 99 Room Air Initial VS: Reviewed Head / Eyes: Atraumatic, Normocephalic, PERRL ENT: Mucous membranes moist, Conjunctiva normal, No scleral icterus Neck: Supple, Non-tender, Full range of motion Respiratory: Breath sounds normal, Clear to auscultation, No respiratory distress Cardiovascular: Regular rate & rhythm, Heart sounds normal, Intact distal pulses Abdomen / GI: Soft, Non-tender, No guarding, No rebound, No distention Lymphatic: No lymphadenopathy Extremities: Vascular intact, Neuro intact, No swelling, No tenderness General/Constitutional: Awake, Alert, Cooperative Skin: Color NL Rash / Lesion Notes: Erythematous confluent macular rash to his forehead and cheeks. Neurologic: Oriented X3, Speech NL Nonfocal. Slight tremor in his hands. Psychiatric: Not homicidal, No hallucinations, Cognitive function NL, Judgment/ insight NL, Thought content NL Abnormal Mood/Affect: Positive: Depressed Abnormal Thinking / Perception: Positive: Suicidal, with plan Not psychotic Interpretation & Diagnostics Lab Results Interpretation Result Diagram: 11/15/16193911/15/162043 Test 11/15/16 19:40 11/15/16 20:44 11/15/16 20:45 White Blood Count 9.9th/mm3 (3.8-10.1) Red Blood Count 4.86mil/mm3 (4.40-5.80) Hemoglobin 15.1g/dL (13.8-17.2) Hematocrit 44.1% (41.0-50.0) Mean Corpuscular Volume 90.7fL (81-100) Mean Corpuscular Hemoglobin 31.1pg (27.0-35.0) Mean Corpuscular Hemoglobin Concent 34.2% (32.0-37.0) Red Cell Distribution Width 13.0% (12.3-15.4) Platelet Count 339bil/L (150-400) Neutrophils (%) (Auto) 68.4% (40-74) Lymphocytes (%) (Auto) 20.2% (14-46) Monocytes (%) (Auto) 6.7% (4-12) Eosinophils (%) (Auto) 3.2% (0-5) Basophils (%) (Auto) 1.0% (0-3) Sodium Level 139mEq/L (134-144) Potassium Level 4.0mEq/L (3.5-5.2) Chloride Level 106mEq/L (97-108) Carbon Dioxide Level 19mmol/L (18-29) Blood Urea Nitrogen 13mg/dL (6-20) Creatinine 0.55mg/dL (0.76-1.27) Estimat Glomerular Filtration Rate 183mL/min (>59) Glucose Level 136mg/dL (60-99) Calcium Level 9.1mg/dL (8.5-10.1) Magnesium Level 1.8mg/dL (1.6-2.6) Total Bilirubin 0.2mg/dL (0.0-1.2) Aspartate Amino Transf (AST/SGOT) 20U/L (0-50) Alanine Aminotransferase (ALT/SGPT) 25U/L (0-44) Alkaline Phosphatase 56U/L (25-150) Total Protein 6.3g/dL (6.4-8.4) Albumin 4.1g/dL (3.4-5.0) Lipase 30U/L (13-60) Hold Warren Top Tube Received (Received) Phenytoin (Dilantin) Level 10.4uG/mL (10.0-20.0) Urine Color Yellow (YELLOW) Urine Appearance Hazy (CLEAR,HAZY) Urine pH 7.0 (5.0-8.0) Urine Specific Adams 1.010 (1.003-1.035) Urine Protein Negativemg/dL (NEG,TRACE) Urine Glucose (UA) Negativemg/dL (NEGATIVE) Urine Ketones Negativemg/dL (NEGATIVE) Urine Occult Blood Negative (NEGATIVE) Urine Nitrite Negative (NEGATIVE) Urine Bilirubin Negative (NEGATIVE) Urine Urobilinogen Normalmg/dL (NORMAL) Urine Leukocyte Esterase Negative (NEGATIVE) Urine RBC 0-2/hpf (0-2) Urine WBC 0-5/hpf (0-5) Urine Epithelial Cells Few/hpf (NONE-MOD) Urine Crystals None seen (NONE SEEN) Urine Bacteria Few/hpf (NONE-FEW) Urine Hyaline Casts None/lpf (NONE) Urine Granular Casts None seen (NONE SEEN) Urine Waxy Casts None seen (NONE SEEN) Urine Red Blood Cell Casts None seen (NONE SEEN) Urine White Blood Cell Casts None seen (NONE SEEN) Urine Mucus None seen (None Seen) Urine Trichomonas None seen (NONE SEEN) Urine Yeast None (NONE SEEN) Urinalysis Comment Amorphous sediment Urine Culture Reflexed Not indicated ECG Interpretation ECG Interpretation: Sinus rhythm with a rate of 93 Time: 19:45 Interpreted by: ED physician Re-Eval/Medical Decision Source of Hx: Old records Time of Eval: 22:51 Re-Evaluation/Progress Note: Rechecked the patient. Discussed diagnosis and plan for admission. All questions were addressed. Consultation #1: Consulted With: caseworker protective services Call Returned at: 21:29 Lead Blender: Will see in office Note: Discussed the patient's case with the ED social sciences chair. He will see the patient. Consultation #2: Consulted With: caseworker protective services Call Returned at: 21:39 Note: ED social sciences chair examined the patient. He was able to give his pain medication to a friend so he did not have them at home. The social sciences chair feels comfortable letting the patient go home. The patient has a counselor he is able to see. Consultation #3: Referral / Consult Name: Irma Mcbride MD Consulted With: Neurology Call Returned at: 22:12 Lead Blender: Agrees with eval, Agrees with plan Note: She would like the Dilantin stopped and the patient admitted. She will see him in the morning. Consultation #4: Referral / Consult Name: Reese Kaur MD Consulted With: Hospitalist Requested Call at: 22:51 Lead Blender: Will see patient, Agrees with eval, Agrees with plan, Accepts admit Counseled Regarding: Diagnosis, Lab results, Need for admission Discharge & Departure Primary Impression: Dilantin toxicity Encounter type: initial encounter Injury intent: accidental or unintentional Qualified Code: T42.0X1A - Poisoning by hydantoin derivatives, accidental (unintentional), initial encounter Disposition: ADMITTED TO HOSPITAL Discharge Condition All VS Reviewed: Yes Condition: Stable Referrals: Michael Thomas MD (PCP) Scribe Attestation Portions of this note were transcribed by Elvie Cook. I, Dr. Treviño personally performed the history, physical exam and medical decision-making; I reviewed and confirmed the accuracy of the information in the transcribed note. Signed by: Brianne Roca, 11/15/2016 at 2305. copies to: Michael Thomas MD, Kirk H MD November 15, 2016 19:22 Elvie Cook November 15, 2016 19:27
[2016-11-15 20:06] LABS: EOSINOPHILS % (AUTO) 3.2 % (0-5); MONOCYTES % (AUTO) 6.7 % (4-12); Mean Corpuscular Hemoglobin 31.1 pg (27.0-35.0); Mean Corpuscular Volume 90.7 fL (81-100); NEUTROPHILS % (AUTO) 68.4 % (40-74); Platelet Count 339 bil/L (150-400)
[2016-11-15 21:18] LABS: Magnesium 1.8 mg/dL (1.6-2.6)
[2016-11-15 21:20] LABS: APPEARANCE,URINE HAZY (CLEAR,HAZY); COLOR,URINE YELLOW (YELLOW); OCCULT BLOOD,URINE NEGATIVE (NEGATIVE); UROBILINOGEN,URINE NORMAL (NORMAL)
[2016-11-15 21:30] VITALS: BP 148/98; PULSE 118; RESP 18; O2SAT 99
[2016-11-15] MEDS ORDERED: Alum-Mag Hydrox-Simeth 30 mL Suspension PO PRN (23:10)
[2016-11-15] MEDS ORDERED: Polyethylene Glycol (PEG) 17 Gm Powder PO PRN (23:10)
[2016-11-15] MEDS ORDERED: Ondansetron 2 mg/mL 2 mL Inj IVPUSH PRN (23:10)
[2016-11-15] MEDS ORDERED: LORazepam 1 mg Tablet PO PRN (23:30)
[2016-11-15] MEDS ORDERED: LORazepam 1 mg Tablet PO ONE (23:30)
[2016-11-15] MEDS ORDERED: Dextrose 10% 250 ML IV PRN (23:40)
[2016-11-15] MEDS ORDERED: Glucose 40% Oral Gel 15 Gm Tube PO PRN (23:40)
[2016-11-15 23:50] VITALS: BP 146/82; PULSE 84; RESP 18; O2SAT 96
[2016-11-15 23:56] VITALS: BP 134/86; PULSE 62; RESP 16; O2SAT 97
--- NOTE | 2016-11-16 00:53 | PCM.HPMED ---
Subjective Date of Service November 15, 2016 Primary Provider: Admitting Physician: Reese Kaur MD Primary Care Physician: Michael Thomas MD Attending Physician: Reese Kaur MD Admit Status: From the Emergency Department, 23-Hour Observation Chief Complaint: Confusion History of Present Illness: Michael Bo is a 31 year old male with Epilepsy, hypertension, IDDM, depression, anxiety, and PTSD, who presents to [facility] emergency department with multiple complaints with suicidal thoughts and depression. Patient slept most of the day on Monday and yesterday he woke up and felt weird. He complains of feeling "spacey," kept walking into the [place]nandez and was not aware of what he was doing. He also felt depressed and unhappy, suicidal ( denies any auditory hallucinations and did not act on these feelings) He has reported upper extremity "shaking," nausea, vomiting, and skin rash. He was recently admitted for seizures and was discharged home on Monday. Many of his medications were altered and he was sent home on Dilantin. He did not take his dose of T He has not smoked tobacco since prior to his recent admission. He does smoke marijuana and denies any illicit drugs. Case discussed with Dr Treviño, he spoke to Dr Mcbride who recommended holding Dilantin and admitting patient to monitor in case he has a seizure and she will consult in the morning. Review of Systems: Pertinent positives as noted in HPI. All other systems were reviewed and are negative Allergies Coded Allergies: No Known Allergies (Verified Allergy, Unknown, 11/07/16) Home Medications From recent discharge Summary Amlodipine (Amlodipine) 5 Mg Tablet 10 MG PO HS (Reported) Gabapentin (Gabapentin) 800 Mg Tablet 1,600 MG PO HS (Reported) Insulin Detemir (Levemir U100 Insulin Vial) 100 Unit/1 Ml Vial 25 UNITS SUBQ at bed time Prescribed by: STEFFANIE GAMBOA DO Lisinopril (Lisinopril) 30 Mg Tablet 30 MG PO DAILY (Reported) Nicotine 14 mg/24 hr Patch (Nicotine 14 mg/24 hr Patch) 1 Each Patch.td24 1 PATCH TRANSDERM DAILY Start using these after the 21mg patches run out. Prescribed by: STEFFANIE GAMBOA DO Nicotine 21 mg/24 hr Patch (Nicotine 21 mg/24 hr Patch) 1 Each Patch.td24 1 PATCH TOPICAL Q24H Prescribed by: STEFFANIE GAMBOA DO Nicotine 7 mg/24 hr Patch (Nicotine 7 mg/24 hr Patch) 1 Each Patch.td24 1 PATCH TRANSDERM DAILY Start using these after the 14mg patches run out. 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 Surgical History Inguinal hernia repair Deviated septum repair Family History Patient's mother had multiple IN, first one age 31 Social History Hx Alcohol Use: No Hx Substance Use: Yes (marijuana) Hx Tobacco Use: Yes Smoking Status: Current Every Day Smoker Living Arrangement: with Family Exam Vital Signs Vital Sign - Last Date Time Temp Pulse Resp B/P Pulse Ox O2 Delivery O2 Flow Rate FiO2 11/15/16 21:30 37.3 118 18 148/98 99 Room Air Exam General: Alert, Oriented X3, Cooperative, No acute Distress Eyes: PERRLA, Scleral Anicteric Mouth: Mouth Normal, Mucous Membranes Moist/[place] Neck: Supple, no Thyromegaly, trachea central. Chest & Lungs: Clear to auscultation & percussion, No adventitious breath sounds, no crackles, no wheeze Cardiovascular: Normal S1, Normal S2, No Murmurs/Rubs/Gallops, Regular Rate/ Rhythm Pulses: Radial (present and equal), Dorsalis Pedi (present and equal) Abdomen: Soft, Non-tender, Non-distended, Normoactive bowel tones. Musculoskeletal: Unremarkable. Normal range of motion, no swollen or erythematous joints Extremities: No edema, no cyanosis, no clubbing. Skin: Erythematous confluent macular rash to his forehead and cheeks. Neurological: Grossly neurologically intact, Normal Speech, Sensation Intact Lymphatic: Lymph nodes Cervical and Axillary not palpable Lab and Diagnostics Labs Laboratory Tests Test 11/15/16 19:40 11/15/16 20:44 11/15/16 20:45 White Blood Count 9.9th/mm3 (3.8-10.1) Red Blood Count 4.86mil/mm3 (4.40-5.80) Hemoglobin 15.1g/dL (13.8-17.2) Hematocrit 44.1% (41.0-50.0) Mean Corpuscular Volume 90.7fL (81-100) Mean Corpuscular Hemoglobin 31.1pg (27.0-35.0) Mean Corpuscular Hemoglobin Concent 34.2% (32.0-37.0) Red Cell Distribution Width 13.0% (12.3-15.4) Platelet Count 339bil/L (150-400) Neutrophils (%) (Auto) 68.4% (40-74) Lymphocytes (%) (Auto) 20.2% (14-46) Monocytes (%) (Auto) 6.7% (4-12) Eosinophils (%) (Auto) 3.2% (0-5) Basophils (%) (Auto) 1.0% (0-3) Sodium Level 139mEq/L (134-144) Potassium Level 4.0mEq/L (3.5-5.2) Chloride Level 106mEq/L (97-108) Carbon Dioxide Level 19mmol/L (18-29) Blood Urea Nitrogen 13mg/dL (6-20) Creatinine 0.55mg/dL (0.76-1.27) Estimat Glomerular Filtration Rate 183mL/min (>59) Glucose Level 136mg/dL (60-99) Calcium Level 9.1mg/dL (8.5-10.1) Magnesium Level 1.8mg/dL (1.6-2.6) Total Bilirubin 0.2mg/dL (0.0-1.2) Aspartate Amino Transf (AST/SGOT) 20U/L (0-50) Alanine Aminotransferase (ALT/SGPT) 25U/L (0-44) Alkaline Phosphatase 56U/L (25-150) Total Protein 6.3g/dL (6.4-8.4) Albumin 4.1g/dL (3.4-5.0) Lipase 30U/L (13-60) Hold Warren Top Tube Received (Received) Phenytoin (Dilantin) Level 10.4uG/mL (10.0-20.0) Urine Color Yellow (YELLOW) Urine Appearance Hazy (CLEAR,HAZY) Urine pH 7.0 (5.0-8.0) Urine Specific [place] 1.010 (1.003-1.035) Urine Protein Negativemg/dL (NEG,TRACE) Urine Glucose (UA) Negativemg/dL (NEGATIVE) Urine Ketones Negativemg/dL (NEGATIVE) Urine Occult Blood Negative (NEGATIVE) Urine Nitrite Negative (NEGATIVE) Urine Bilirubin Negative (NEGATIVE) Urine Urobilinogen Normalmg/dL (NORMAL) Urine Leukocyte Esterase Negative (NEGATIVE) Urine RBC 0-2/hpf (0-2) Urine WBC 0-5/hpf (0-5) Urine Epithelial Cells Few/hpf (NONE-MOD) Urine Crystals None seen (NONE SEEN) Urine Bacteria Few/hpf (NONE-FEW) Urine Hyaline Casts None/lpf (NONE) Urine Granular Casts None seen (NONE SEEN) Urine Waxy Casts None seen (NONE SEEN) Urine Red Blood Cell Casts None seen (NONE SEEN) Urine White Blood Cell Casts None seen (NONE SEEN) Urine Mucus None seen (None Seen) Urine Trichomonas None seen (NONE SEEN) Urine Yeast None (NONE SEEN) Urinalysis Comment Amorphous sediment Urine Culture Reflexed Not indicated Result Diagram: 11/15/16193911/[id number] Assessment & Plan Michael Bo is a 31 year old male with Epilepsy, hypertension, IDDM, depression, anxiety, and PTSD, who presents to [facility] emergency department with multiple complaints with suicidal thoughts and depression. 1. Acute encephalopathy. Present on admission Likely side effects of his seizure medications or worsening of his psychiatric conditions. Patient has Anxiety, Depression and PTSD. No clinical evidence of PLANT ATTENDANT OR ASSISTANT OPERATOR infections such as meningitis or encephalitis. - Dilantin stopped as per Dr Mcbride's recommendations - consider Psychiatric evaluation if indicated 2 Epilepsy with recent Seizure episode. - will hold both Topamax and Dilantin - seizure precautions in place - PRN Dilatin IV for seizure episodes - may need medications such as Keppra with better side effects profile - Dr Zamarripa will determine a replacement for Dilantin 3. Facial rash. 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 Hypertension - continue home Amlodipine 5 mg PO HS and Lisinopril 30 mg PO daily 6. Insomnia, - continue Trazodone 50 mg PO HS - Acetaminophen as needed for mild pain/fever/headache - Bowel regimen as needed - Antiemetic as needed Patient is admitted under observation status with expected length of stay less than 2 midnights due to severity of presenting symptoms, risk of adverse event, and complexity of treatment plan. . Resuscitation Status: CPR: Attempt Resuscitation Reese Kaur MD November 15, 2016 23:38
[2016-11-16] MEDS ORDERED: IBUP200C PO (01:03)
[2016-11-16] MEDS ORDERED: ALBU8.5H2 INHALATION (01:03)
[2016-11-16] MEDS ORDERED: KLO5T PO (01:03)
[2016-11-16] MEDS ORDERED: INSU100V28 SUBQ (01:06)
--- NOTE | 2016-11-16 01:24 | NUR ---
Admit Note Received phone reports from ED @2300, Pt. arrived to the floor at 2330 via WC accompanied by ED nurse, alert and oriented x3, able to transfer himself to bed with steady gait, independently ambulating in rm with SBA, oriented to rm, call light, TV, BR and bed, calm, pleasant and able to verbalize needs and uses call light appropriately, skin checks done with Flako Alvarez RN, no skin issue or open sores noted at this time, on seizure precaution, seizure pads in place, c/o of headache and given prn tylenol with a state of relief, Seen by Jorge Bradford around [place], vitals stable, call light in reach, hourly checks, all needs attended and will continue to monitor.
[2016-11-16] MEDS ORDERED: Albuterol 2.5 mg/3 mL Inhalation Solution NEB PRN (01:43)
[2016-11-16 06:14] VITALS: BP 113/76; PULSE 63; RESP 16; O2SAT 99
[2016-11-16] MEDS: Insulin LISPRO 300 Unit/3 mL Inj SUBQ SCH ×2 (07:40→12:00)
[2016-11-16 07:47] VITALS: BP 146/67; PULSE 76; RESP 16; O2SAT 98
[2016-11-16 08:13] VITALS: PULSE 50; RESP 14; O2SAT 98
--- NOTE | 2016-11-16 10:08 | NUR ---
Social Work- Brief Note Data: EMR reviewed. Pt is a 31 year old male admitted 11/15/16 for Dilantin toxicity per H&P. Pt's insurance is [facility] and PCP is Michael Thomas MD. COFFEE SHOP ATTENDANT met with pt at bedside regarding discharge plan, SW role explained. Pt alert and oriented x3. Pt resides in [facility] where he remains independent with ADLs. Pt does not drive due to his seizure disorder. 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 Upon admission, pt reported suicidal thoughts and depression. ED COFFEE SHOP ATTENDANT spoke with pt and completed a safety plan. Floor COFFEE SHOP ATTENDANT followed up with pt regarding this, current SI. Pt denies any current SI or HI, denies hopelessness. Pt discussed his presentation at the ER as "it wasn't me," which is why it was so concerning to him and caused him to seek help through the ED. Pt sees Gilberto Chavez at [facility] once a month, last appointment in the beginning of October. Pt was hospitalized during October appointment. Pt agreeable to following up and making an appointment with [facility] after this hospitalization. COFFEE SHOP ATTENDANT provided outpatient resource sheet, including Crisis Line. Pt endorses a support system of his mother and his friend at the [employer]. 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 Pt has been sober 2 years from etoh. Pt denies any concerns related to his sobriety, endorses that it is very important to him. Pt agreeable to contacting his floor RN if he begins having any SI. Pt to discharge home with friends to transport via POV or bus transportation. COFFEE SHOP ATTENDANT to follow up with pt regarding bus voucher needs prior to discharge. COFFEE SHOP ATTENDANT will continue to follow. YOLANDA Orellana
[2016-11-16 10:58] VITALS: BP 118/72
[2016-11-16] MEDS ORDERED: INSU100V4 SUBQ (12:09)
[2016-11-16] MEDS ORDERED: LISI30TA5 PO (12:09)
--- NOTE | 2016-11-16 12:13 | PCM.DIMED ---
Discharge Instructions Date of Service November 16, 2016 Dates of Hospitalization November 15, 2016 at 23:16 Discharge Diagnosis Discharge Diagnosis Dilantin allergy Diabetes Hypertension Depression Medication Instructions Please do not take Dilantin anymore. It should now be listed as an allergy. If anyone asks if you have allergies to medications she told him yes to Dilantin causes psychosis and severe suicidal ideation. Continue taking Topamax, Ativan, and gabapentin Patient Instructions Follow-up plan Follow-up with Dr. Cordova on 12/09/2016 at 9:30 in the morning The plan is for you to most likely have a video EEG done as an outpatient If you have a seizure for longer than 3 minutes that cannot be broken with medication then please go to the nearest emergency room however if you start to have seizures and they are less than 3 minutes long please call Dr. Cordova's office. Follow-up Provider: Darshan Cordova MD Follow-up with PCP in: 1 week (Follow-up with Dr. Cordova on 12/09/2016 at 9:30 in the morning) Dalila Ogden DO November 16, 2016 12:13
[2016-11-16 12:17] VITALS: BP 124/79; PULSE 92; RESP 16; O2SAT 97
--- NOTE | 2016-11-16 12:19 | PCM.DC.MED ---
Discharge Summary Date of Service November 16, 2016 Dates of Hospitalization Date of Hospital Admission November 15, 2016 at 23:16 Date of Discharge: November 16, 2016 Providers: Admitting Physician: Reese Kaur MD Primary Care Physician: Michael Thomas MD Attending Physician: Reese Kaur MD Diagnosis at Time of Discharge Diagnosis at Time of Discharge Dilantin allergy Diabetes Hypertension Depression Brief History Michael Bo is a 31 year old male with Epilepsy, hypertension, IDDM, depression, anxiety, and PTSD, who presents to [facility] emergency department with multiple complaints with suicidal thoughts and depression. Patient slept most of the day on Monday and yesterday he woke up and felt weird. He complains of feeling "spacey," kept walking into the [place] and was not aware of what he was doing. He also felt depressed and unhappy, suicidal ( denies any auditory hallucinations and did not act on these feelings) He has reported upper extremity "shaking," nausea, vomiting, and skin rash. He was recently admitted for seizures and was discharged home on Monday. Many of his medications were altered and he was sent home on Dilantin. He did not take his dose of T He has not smoked tobacco since prior to his recent admission. He does smoke marijuana and denies any illicit drugs. Case discussed with Dr Treviño, he spoke to Dr Mcbride who recommended holding Dilantin and admitting patient to monitor in case he has a seizure and she will consult in the morning. Hospital Course Michael Bo is a 31 year old male with Epilepsy, hypertension, IDDM, depression, anxiety, and PTSD, who presents to [facility] emergency department with multiple complaints with suicidal thoughts and depression. The patient was admitted for suicidal ideations and worsening depression. This is most likely secondary to an allergy to Dilantin. The patient currently is now back in his normal state of mind and is aware of what had happened. Neurology (Dr. Mcbride) evaluated the patient today and stated that the patient is currently stable and able to return home. The patient should continue taking Topamax, gabapentin, and Ativan as previously prescribed however the patient should immediately stop Dilantin and this is now considered a new allergy for the patient. As an outpatient the patient will have a video EEG to review if his seizures are true seizures or if it is more secondary to PTSD. The patient has been instructed that if he were to have a seizure lasting greater than 3 minutes or a prolonged seizure that is unable to be broken with medication and he needs to go to emergency room immediately. However if the patient is able to break the seizure with medications within 3 minutes then he should call the office for follow-up. The patient is being discharged home in stable condition. For full hospital course see below: 1. Acute encephalopathy. Present on admission Likely side effects of his seizure medications or worsening of his psychiatric conditions. Patient has Anxiety, Depression and PTSD. No clinical evidence of PULMONARY DISEASE SPECIALIST infections such as meningitis or encephalitis. - Dilantin stopped as per Dr Mcbride's recommendations - consider Psychiatric evaluation if indicated 2 Epilepsy with recent Seizure episode. - will hold both Topamax and Dilantin - seizure precautions in place - PRN Dilatin IV for seizure episodes - may need medications such as Keppra with better side effects profile - Dr Zamarripa will determine a replacement for Dilantin 3. Facial rash. 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 Hypertension - continue home Amlodipine 5 mg PO HS and Lisinopril 30 mg PO daily 6. Insomnia, - continue Trazodone 50 mg PO HS - Acetaminophen as needed for mild pain/fever/headache - Bowel regimen as needed - Antiemetic as needed Patient is admitted under observation status with expected length of stay less than 2 midnights due to severity of presenting symptoms, risk of adverse event, and complexity of treatment plan. . Exam Vital Signs (Last) Date Time Temp Pulse Resp B/P Pulse Ox O2 Delivery O2 Flow Rate FiO2 11/16/16 10:58 118/72 11/16/16 08:13 50 14 98 Room Air 11/16/16 07:47 36.1 Exam Physical Exam: GEN: Patient was awake, alert, responding appropriately to questions HEENT: Pupils equal round and reactive to light, extraocular eye muscles intact , Neck soft supple, trachea midline, nomocephalic/atraumatic CV: +S1/S2, regular rate and rhythm, no murmurs auscultated Respiratory: CTAB, no wheezes, rales, rhonchi GI: +bowel sounds x4, soft, compressible, nontender to palpation EXT: no clubbing, cyanosis, edema Neuro: Cranial nerves II-XII grossly intact Psych: mood and affect were appropriate Test 11/15/16 19:40 11/15/16 20:44 11/15/16 20:45 11/15/16 20:55 White Blood Count 9.9th/mm3 (3.8-10.1) Red Blood Count 4.86mil/mm3 (4.40-5.80) Hemoglobin 15.1g/dL (13.8-17.2) Hematocrit 44.1% (41.0-50.0) Mean Corpuscular Volume 90.7fL (81-100) Mean Corpuscular Hemoglobin 31.1pg (27.0-35.0) Mean Corpuscular Hemoglobin Concent 34.2% (32.0-37.0) Red Cell Distribution Width 13.0% (12.3-15.4) Platelet Count 339bil/L (150-400) Neutrophils (%) (Auto) 68.4% (40-74) Lymphocytes (%) (Auto) 20.2% (14-46) Monocytes (%) (Auto) 6.7% (4-12) Eosinophils (%) (Auto) 3.2% (0-5) Basophils (%) (Auto) 1.0% (0-3) Sodium Level 139mEq/L (134-144) Potassium Level 4.0mEq/L (3.5-5.2) Chloride Level 106mEq/L (97-108) Carbon Dioxide Level 19mmol/L (18-29) Blood Urea Nitrogen 13mg/dL (6-20) Creatinine 0.55mg/dL (0.76-1.27) Estimat Glomerular Filtration Rate 183mL/min (>59) Glucose Level 136mg/dL (60-99) Calcium Level 9.1mg/dL (8.5-10.1) Magnesium Level 1.8mg/dL (1.6-2.6) Total Bilirubin 0.2mg/dL (0.0-1.2) Aspartate Amino Transf (AST/SGOT) 20U/L (0-50) Alanine Aminotransferase (ALT/SGPT) 25U/L (0-44) Alkaline Phosphatase 56U/L (25-150) Total Protein 6.3g/dL (6.4-8.4) Albumin 4.1g/dL (3.4-5.0) Lipase 30U/L (13-60) Hold [place] Top Tube Received (Received) Phenytoin (Dilantin) Level 10.4uG/mL (10.0-20.0) Urine Color Yellow (YELLOW) Urine Appearance Hazy (CLEAR,HAZY) Urine pH 7.0 (5.0-8.0) Urine Specific [place] 1.010 (1.003-1.035) Urine Protein Negativemg/dL (NEG,TRACE) Urine Glucose (UA) Negativemg/dL (NEGATIVE) Urine Ketones Negativemg/dL (NEGATIVE) Urine Occult Blood Negative (NEGATIVE) Urine Nitrite Negative (NEGATIVE) Urine Bilirubin Negative (NEGATIVE) Urine Urobilinogen Normalmg/dL (NORMAL) Urine Leukocyte Esterase Negative (NEGATIVE) Urine RBC 0-2/hpf (0-2) Urine WBC 0-5/hpf (0-5) Urine Epithelial Cells Few/hpf (NONE-MOD) Urine Crystals None seen (NONE SEEN) Urine Bacteria Few/hpf (NONE-FEW) Urine Hyaline Casts None/lpf (NONE) Urine Granular Casts None seen (NONE SEEN) Urine Waxy Casts None seen (NONE SEEN) Urine Red Blood Cell Casts None seen (NONE SEEN) Urine White Blood Cell Casts None seen (NONE SEEN) Urine Mucus None seen (None Seen) Urine Trichomonas None seen (NONE SEEN) Urine Yeast None (NONE SEEN) Urinalysis Comment Amorphous sediment Urine Culture Reflexed Not indicated Urine Opiates Screen Negative Urine Methadone Screen Negative Urine Barbiturates Screen Negative Urine Amphetamines Screen Negative Urine Benzodiazepines Screen Negative Urine Cocaine Metabolite Screen Negative Urine Cannabinoids Screen Positive Discharge Medications Discharge Medications Amlodipine (Amlodipine) 5 Mg Tablet 10 MG PO HS (Reported) Gabapentin (Gabapentin) 800 Mg Tablet 1,600 MG PO HS (Reported) Insulin Detemir (Levemir U100 Insulin Vial) 100 Unit/1 Ml Vial 30 UNITS SUBQ at bed time Prescribed by: STEFFANIE GAMBOA DO Insulin Regular, Human (HUMulin-R U100 Insulin Vial) 100 Unit/1 Ml Vial 1-12 UNIT SUBQ TIDWM (Reported) Lisinopril (Lisinopril) 30 Mg Tablet 40 MG PO QAM Prescribed by: STEFFANIE L GAMBOA, DO Nicotine 7 mg/24 hr Patch (Nicotine 7 mg/24 hr Patch) 1 Each Patch.td24 1 PATCH TRANSDERM DAILY Start using these after the 14mg patches run out. Prescribed by: STEFFANIE GAMBOA DO Topiramate (Topiramate) 25 Mg Tablet 200 MG PO BID (Reported) Trazodone (Trazodone) 50 Mg Tablet 100 MG PO HS (Reported) As needed Albuterol HFA (Proair HFA) 8.5 Gm Hfa.aer.ad 2 PUFFS INHALATION Q4H PRN PRN For Shortness of Breath (Reported) Clonazepam (Clonazepam) 0.5 Mg Tablet 0.5 MG PO TID PRN PRN AURA (Reported) Ibuprofen (Ibuprofen) 200 Mg Capsule 200-400 MG PO QID PRN PRN For Pain ( Reported) Lorazepam (Lorazepam) 0.5 Mg Tablet 0.5 MG PO every 6 hours PRN PRN Anxiety or auras Prescribed by: STEFFANIE GAMBOA DO Additional med instructions Please do not take Dilantin anymore. It should now be listed as an allergy. If anyone asks if you have allergies to medications she told him yes to Dilantin causes psychosis and severe suicidal ideation. Continue taking Topamax, Ativan, and gabapentin Followup Plan Follow-up plan Follow-up with Dr. Cordova on 12/09/2016 at 9:30 in the morning The plan is for you to most likely have a video EEG done as an outpatient If you have a seizure for longer than 3 minutes that cannot be broken with medication then please go to the nearest emergency room however if you start to have seizures and they are less than 3 minutes long please call Dr. Cordova's office. Discharge Diet: Diabetic Discharge Activity: Other (no driving) Follow-up Provider: Darshan Cordova MD Follow-up with PCP in: 1 week (Follow-up with Dr. Cordova on 12/09/2016 at 9:30 in the morning) Time spent Greater than 35 minutes copies to: Michael Thomas MD; Darshan Cordova MD, Precious L DO November 16, 2016 12:19
--- NOTE | 2016-11-16 13:35 | NUR ---
Social Work- Discharge Data: EMR reviewed. Pt is on day 1 of hospitalization for Dilantin Toxicity per H&P. Pt to discharge today, orders are active. Per Hospitalist, Neuro has been consulted and cleared pt. RADIO DIVISION CAPTAIN met with pt at bedside regarding discharge plan, pt agreeable to discharge. Pt does not drive, requested bus voucher from RADIO DIVISION CAPTAIN. RADIO DIVISION CAPTAIN provided pt with bus voucher at bedside. No other discharge needs identified. Assessment: Pt who is independent at baseline. Plan: RADIO DIVISION CAPTAIN provided pt with bus voucher. Pt to discharge home via bus, no discharge needs identified. YOLANDA Orellana
--- NOTE | 2016-11-16 14:53 | CONS ---
[address] [address] CONSULTATION REPORT PATIENT: WALDEMAR LINDSAY : 1985 MR#: [id number] ADMIT: 11/15/2016 JOB ID: [id number] DATE OF SERVICE: 11/16/2016 NEUROLOGY CONSULTATION: REQUESTING PHYSICIAN: Dalila Ogden D.O. for Dilantin toxicity. HISTORY OF PRESENT ILLNESS: The patient is a 31-year-old gentleman who is followed closely in the Neurology Clinic by Dr. Darshan Cordova for localization epilepsy, non epileptic spells, facial spasm with a history of posttraumatic stress disorder. The patient was admitted via the emergency department last night after developing what appeared to be a toxic reaction to Dilantin. He became suicidally depressed, anxious and confused. He developed these symptoms after discharge from recent hospitalization where Dilantin was added and increased by Dr. Cordova. He continues on topiramate which he has been taking for the last two years without significant side effects or problems per his report. When he developed shakiness, nausea, vomiting and rash, he was brought into the emergency department. I was called by Dr. Treviño from the [facility] emergency room with his symptoms. I recommended discontinuing Dilantin while observing for improvement in symptoms or recurrence of seizures. The patient has also been troubled by paresthesias. Nerve conduction studies have been negative. The patient reports that the symptoms began after starting topiramate. These paresthesias are somewhat worse today. Today he reports feeling better, no seizures overnight. He is not as unbalanced and depression appears to have resolved. Today he has a headache which is holosystolic and nonpulsatile. Although the patient advises me he does not have a history of migraines, the notes from clinic suggest he does. He does not regularly take medications for migraine. He does not use caffeine. Dr. Dalila Ogden increased lisinopril after the patient advised sure that high blood pressure has been known to cause headaches for him previously. Increasing this medication did not resolve his headache today. He has counseling established at [facility] for posttraumatic stress disorder. He does not recall being diagnosed with nonepileptic spells in the past which was mentioned in the notes from Dr. Cordova during his initial consultation on October 28, 2014. Dilantin was added after the patient had a convulsive seizure, the first ever, prompting admission on November 08. Prior to that the patient reports never having convulsive seizures. His seizures have been confined to focal symptoms previously with hand shaking primarily. Dr. Cordova had been adding additional antiepileptic medications due to facial spasms which the patient states he is now receiving Botox for. He did not tolerate levetiracetam due to sedation. PAST MEDICAL HISTORY, SURGICAL HISTORY, FAMILY HISTORY AND SOCIAL HISTORY: Are unchanged from the consultation note from Dr. Cordova dated November 09, 2016. ALLERGIES: No known drug allergies. OUTPATIENT MEDICATIONS: 1. Topiramate 200 mg two times daily. 2. Dilantin was discontinued after taking 200 mg three times daily. 3. Amlodipine. 4. Gabapentin. 5. Insulin. 6. Lisinopril. 7. Nicotine patch. 8. Trazodone. 9. Lorazepam. INPATIENT MEDICATIONS: 1. Lisinopril 40 mg. 2. Amlodipine 10 mg. 3. Trazodone. 4. Gabapentin. 5. Insulin. 6. Lorazepam. 7. Nicotine patch. REVIEW OF SYSTEMS: The patient is experiencing headache, facial redness. All other systems reviewed and reported as negative except as noted above. PHYSICAL EXAMINATION: Vital signs: Blood pressure 118/72, down from 146/67 and 157/111 on admission with a pulse of 120, now pulse 50. Respiratory rate 14, pulse oximetry 98% on room air. Head: Normocephalic, atraumatic. Erythematous regions of the face and malar area. Lungs clear to auscultation. Cardiac: Regular rate and rhythm. No edema or lesions noted on the skin of the lower extremities or upper extremities with extensive tattooed skin on the upper extremities. NEUROLOGIC EXAMINATION: The patient is alert and oriented x3, with language and speech intact and fluent. Mood appears to be mildly anxious. Cranial nerves: Pupils are equally reactive to light and accommodation. Extraocular movements are intact. No facial asymmetry. Sensation intact on the face bilaterally. Tongue midline. Palate raises symmetrically. SCM and shoulder shrug, as well as hearing appear to be intact. No twitching or facial spasm seen. Motor: Intact upper and lower extremities. Deep tendon reflexes: Trace throughout upper and lower extremities with plantar reflex flexor. Sensation intact to touch in all four extremities. Coordination intact upper and lower extremities. Gait intact with no balance issues. LABORATORY STUDIES: CBC, comprehensive metabolic panel without significant abnormalities aside from glucose 135, Dilantin level 10.4 on admission. U-Tox negative with exception of cannabinoids. UA negative. ASSESSMENT AND RECOMMENDATION: The patient is a 31-year-old gentleman with history of seizures and spells and posttraumatic stress disorder admitted with rash and psychiatric symptoms which began with and have improved since the discontinuation of Dilantin. Dilantin was added as a third antiepileptic medication in addition to topiramate and gabapentin during his last hospitalization for a new type of seizure/spell. I recommended continuing topiramate 200 mg two times daily and gabapentin as well as lorazepam. Dilantin should not be continued. Topiramate was not on his medication list when I reviewed it earlier and I have now added that to be given as soon as possible and before discharge. He was advised that non epileptic events can occur in the context of posttraumatic stress disorder and appear to have been present previously. Nonetheless, if he continues to have convulsive seizures lasting longer than 3 minutes or multiple seizures without regaining consciousness, he should seek urgent medical attention. For other seizures, he should call the clinic for additional recommendations. This is also true of the patient's rash and psychiatric symptoms. Should they worsen, emergent re-evaluation is recommended. For the patient's headache, I recommended prochlorperazine/Compazine 10 mg which may make him tired. Once his symptoms stabilize, he is stable for discharge. My recommendations were discussed with his nurse and also Dr. Dalila Ogden. The patient should keep his appointment with Dr. Cordova on December 09 at 9:30 a.m. The patient is aware of that appointment and I have made Dr. Cordova aware of my recommendations. Over half of this 1 hour appointment was spent in counseling with the patient. Thank you for this consultation. ABBEY
--- NOTE | 2016-11-16 15:46 | NUR ---
DISCHARGE Patient discharged at 1515, left hospital with friend who is to drive him home. Patient denies pain, nausea, and shortness of breath. IV catheter removed intact, medications reviewed and new Rx given to patient. Patient verbalized understanding of stopping Dilantin and to call ER is seizure last more than 3 minutes. Patient instructed to continue home medications, follow up with PCP in one week, and call if any questions. Teaching done on diabetes and new insulin Rx.
[2016-11-16] MEDS ORDERED: Insulin GLARgine 100 Unit/mL Syringe SUBQ SCH (21:00)
== END 2016-11-16 15:30 | disposition home or self-care (01) ==
LOC: SED 17:44 → MOC 23:00
PROVIDERS: ADMIT Hospitalist; ATTEND Hospitalist
DX: G92 Toxic encephalopathy (principal); T42.0X5A Adverse effect of hydantoin derivatives, initial encounter; G40.802 Other epilepsy, not intractable, without status epilepticus; R21 Rash and other nonspecific skin eruption; E11.9 Type 2 diabetes mellitus without complications; I10 Essential (primary) hypertension; G47.00 Insomnia, unspecified; F41.8 Other specified anxiety disorders; F43.10 Post-traumatic stress disorder, unspecified; F17.210 Nicotine dependence, cigarettes, uncomplicated; F12.90 Cannabis use, unspecified, uncomplicated; Z79.4 Long term (current) use of insulin
CPT/HCPCS: 36415; 80053; 80185; 80201; 81000; 83690; 83735; 85025; 93005; 94799; 96361; 96374; 96375; 99285; G0378; G0480; J1815; J2405; J7030; Q0164

== ENCOUNTER 2016-11-21 15:07 | Emergency (ER) | payer OTHER ==
[~2016-11-21] VITALS: Ht 182.9 cm; Wt 104.5 kg
[~2016-11-21 15:07] MED LIST changes: +ALBU8.5H2 INHALATION; +IBUP200C PO; +INSU100V28 SUBQ; +KLO5T PO; -NICO1PAT5 TRANSDERM; -NICO1PAT6 TOPICAL; -PHN100C PO
[2016-11-21 15:13] VITALS: BP 159/96; PULSE 86; RESP 20; O2SAT 99
--- NOTE | 2016-11-21 15:20 | ED.REPORT ---
HPI-Psychiatric Illness Date of Service November 21, 2016 ED Provider: Mervin Pitt MD The patient is a 31 year old male w/ a hx of drug abuse, depression, anxiety and seizures who presents to the ED due to increased depression in the last week. The pt was in the ICU 7 days ago for seizures, where he claims they overdosed him on Dilantin. His depression has been 10x worse then baseline. C/o associated migraines, fatigue, excessive sleeping, and suicidal ideation. Pt says that he doesn't know if would hurt himself or not. He has been giving his knives to his neighbors because he doesn't want them in the house. The pt has a counselor at [facility] and is currently on Lorazepam and Clonazepam. He smokes THC and denies alcohol use. Nursing Notes Stated Complaint: MENTAL HEALTH Chief Complaint: Psychiatric Complaint Nursing Notes Reviewed: Yes Allergies: Coded Allergies: phenytoin (Verified Allergy, Severe, Psychosis and suicidal ideations, ) Scheduled Amlodipine (Amlodipine) 5 Mg Tablet 10 MG PO HS Gabapentin (Gabapentin) 800 Mg Tablet 1,600 MG PO HS Insulin Detemir (Levemir U100 Insulin Vial) 100 Unit/1 Ml Vial 30 UNITS SUBQ at bed time Insulin Regular, Human (HUMulin-R U100 Insulin Vial) 100 Unit/1 Ml Vial 1-12 UNIT SUBQ TIDWM Lisinopril (Lisinopril) 30 Mg Tablet 40 MG PO QAM Nicotine 7 mg/24 hr Patch (Nicotine 7 mg/24 hr Patch) 1 Each Patch.td24 1 PATCH TRANSDERM DAILY Start using these after the 14mg patches run out. Topiramate (Topiramate) 25 Mg Tablet 200 MG PO BID Trazodone (Trazodone) 50 Mg Tablet 100 MG PO HS Scheduled PRN Albuterol HFA (Proair HFA) 8.5 Gm Hfa.aer.ad 2 PUFFS INHALATION Q4H PRN PRN For Shortness of Breath Clonazepam (Clonazepam) 0.5 Mg Tablet 0.5 MG PO TID PRN PRN AURA Ibuprofen (Ibuprofen) 200 Mg Capsule 200-400 MG PO QID PRN PRN For Pain Lorazepam (Lorazepam) 0.5 Mg Tablet 0.5 MG PO every 6 hours PRN PRN Anxiety or auras General Time Seen by MD: 15:20 Chief Complaint Suicidal ideation Hx Obtained From: Patient Arrived By: Walk-in Onset Occurred: 1 week ago Symptom Duration: Since onset Progression Since Onset: Gradually worsening Severity: Current: No pain currently Recent Healthcare: Recent doctor visit, Recent hospitalization Similar Sx Previous: Yes Risk-Psychiatric Illness Suicide Risk Stratification Suicide Risk Factors - Adult: : Substance abuse RF Statements: Risk factors reviewed Past Medical History Past Medical History HTN Seizures (focal nocturnal) Anxiety Depression insomnia 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 Physical Exam Initial Vital Signs Vital Signs (First) Date Time Temp Pulse Resp B/P Pulse Ox O2 Delivery O2 Flow Rate FiO2 11/21/16 15:13 36 86 20 159/96 99 Room Air Initial VS: Reviewed Head / Eyes: Atraumatic, Normocephalic ENT: Mucous membranes moist Respiratory: Breath sounds normal, Clear to auscultation Cardiovascular: Regular rate & rhythm, Heart sounds normal Abdomen / GI: Soft, Non-tender, No guarding, No rebound Extremities: Vascular intact, Neuro intact, No swelling Skin: Warm, Dry General/Constitutional: Awake, Alert, Cooperative Neurologic: Oriented X3, Speech NL, No motor deficits, No sensory deficits, CN II - XII intact Abnormal Mood/Affect: Positive: Anxious, Depressed suicidal ideation Re-Eval/Medical Decision Med Decision/Clinical Course 31-year-old male history of depression presenting with depression with suicidal thoughts but no intent. He is on benzos but no antidepressants. He denies suicidal intent to me. He was evaluated by social welfare research worker who agrees the patient is not a suicide risk. Patient reassures us that he is depressed but does not plan on hurting himself. He contracts for safety. He will follow-up with his counselor and resources provided by social welfare research worker. He will be discharged in the care of his mother. Return precautions given regarding any thoughts of hurting himself or others. Re-Evaluation/Progress : Time of Eval: 15:39 Re-Evaluation/Progress Note: sprinkler worker sees pt at the ED. Determines pt is safe to return home with plans to follow up with counselor and resources. F/U and RTER warnings given. All questions addressed. Counseled Regarding: Diagnosis, Lab results, Need for follow-up, When/why to return to ED Discharge & Departure Impression: Primary Impression: Depression Depression Type: unspecified Qualified Code: F32.9 - Major depressive disorder, single episode, unspecified )( Condition at Discharge: No danger to self, No danger to others Disposition: Home Discharge Condition All VS Reviewed: Yes Condition: Stable Additional Instructions: Thank you for entrusting us with your care today. Please follow up with the resources provided by our social welfare research worker. Do not hesitate to return to the Emergency Department if you have any thoughts of harming yourself or others. We are always here to help! Referrals: Micahel Thomas MD (PCP) Scribe Attestation Portion of this note were transcribed by Selina Lopez. I, Dr. Pitt, personally performed the history, physical exam, and medical decision-making: I reviewed and confirmed the accuracy for the information in the transcribed note. Signed by: sydney Linares, 11/21/16 1800 copies to: Michael Thomas MD, Ben M MD November 21, 2016 15:20 Selina Lopez November 21, 2016 15:41
== END 2016-11-21 16:22 | disposition home or self-care (01) ==
LOC: SED 15:07
DX: F32.9 Major depressive disorder, single episode, unspecified (principal); I10 Essential (primary) hypertension; E11.9 Type 2 diabetes mellitus without complications; F17.200 Nicotine dependence, unspecified, uncomplicated; Z88.8 Allergy status to other drugs, medicaments and biological substances; Z79.4 Long term (current) use of insulin

== ENCOUNTER 2016-11-27 02:20 | Emergency (ER) | payer OTHER ==
[~2016-11-27] VITALS: Ht 182.9 cm; Wt 102.3 kg
[2016-11-27 02:24] VITALS: BP 155/107; PULSE 102; RESP 20; O2SAT 99
--- NOTE | 2016-11-27 03:30 | ED.REPORT ---
HPI-Seizure Date of Service November 27, 2016 ED Provider: Benny Hamlin MD Pt is a 31 year old male with a hx of HTN, DM, seizures, PTSD, anxiety and depression presenting to the ED via EMS post seizure episode today. He reports that today he felt like he "usually does" before he has a seizure, which is tremulous. The pt had not had a seizure in 4 years until November 08. Pt was started on Dilantin but has since been taken off due to psychosis and suicidal ideation. Denies other symptoms at this time. Nursing Notes Stated Complaint: SEIZURE Chief Complaint: Seizure Nursing Notes Reviewed: Yes Allergies: Coded Allergies: phenytoin (Verified Allergy, Severe, Psychosis and suicidal ideations, ) Scheduled Amlodipine (Amlodipine) 5 Mg Tablet 10 MG PO HS Gabapentin (Gabapentin) 800 Mg Tablet 1,600 MG PO HS Insulin Detemir (Levemir U100 Insulin Vial) 100 Unit/1 Ml Vial 30 UNITS SUBQ at bed time Insulin Regular, Human (HUMulin-R U100 Insulin Vial) 100 Unit/1 Ml Vial 1-12 UNIT SUBQ TIDWM Lisinopril (Lisinopril) 30 Mg Tablet 40 MG PO QAM Nicotine 7 mg/24 hr Patch (Nicotine 7 mg/24 hr Patch) 1 Each Patch.td24 1 PATCH TRANSDERM DAILY Start using these after the 14mg patches run out. Topiramate (Topiramate) 25 Mg Tablet 200 MG PO BID Trazodone (Trazodone) 50 Mg Tablet 100 MG PO HS Scheduled PRN Albuterol HFA (Proair HFA) 8.5 Gm Hfa.aer.ad 2 PUFFS INHALATION Q4H PRN PRN For Shortness of Breath Clonazepam (Clonazepam) 0.5 Mg Tablet 0.5 MG PO TID PRN PRN AURA Ibuprofen (Ibuprofen) 200 Mg Capsule 200-400 MG PO QID PRN PRN For Pain Lorazepam (Lorazepam) 0.5 Mg Tablet 0.5 MG PO every 6 hours PRN PRN Anxiety or auras General Time Seen by Provider: 03:37 Chief Complaint Chief Complaint: Seizure, generalized Hx Obtained From: Patient Arrived By: Ambulance, Walk-in Onset Occurred: Just prior to arrival Symptom Duration: Since onset Severity: Current: No pain currently Severity: Maximum: No pain Recent Healthcare: No recent doctor visit, No recent hospitalization Similar Sx Previous: Yes Past Medical History Past Medical History HTN Seizures (focal nocturnal) Anxiety Depression insomnia arachnoid 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 Physical Exam Initial Vital Signs Vital Signs (First) Date Time Temp Pulse Resp B/P Pulse Ox O2 Delivery O2 Flow Rate FiO2 11/27/16 02:24 37.2 102 20 155/107 99 Room Air Initial VS: Reviewed, Vital signs abnormal Head / Eyes: Atraumatic, Normocephalic, PERRL ENT: Mucous membranes moist, Conjunctiva normal, No scleral icterus Abdomen / GI: Soft, Non-tender, No guarding, No rebound, No distention Extremities: Vascular intact, Neuro intact, No swelling, No tenderness Skin: Warm, Dry, No cyanosis Psychiatric: Mood/affect normal, Behavior normal, Normal thought content General/Constitutional: Awake, Alert, No acute distress Neck: Atraumatic, Supple Respiratory / Chest: Breath sounds NL, Breath sounds = bilat, No respiratory distress, No rales, No rhonchi, No wheezing Cardiovascular: Heart rate NL, Regular rhythm, Heart sounds NL, Peripheral circulation NL Interpretation & Diagnostics Lab Results Interpretation Result Diagram: 11/27/16 0300 11/27/16 0300 Test 11/27/16 03:00 White Blood Count 9.0th/mm3 (3.8-10.1) Red Blood Count 4.95mil/mm3 (4.40-5.80) Hemoglobin 15.2g/dL (13.8-17.2) Hematocrit 44.8% (41.0-50.0) Mean Corpuscular Volume 90.5fL (81-100) Mean Corpuscular Hemoglobin 30.7pg (27.0-35.0) Mean Corpuscular Hemoglobin Concent 33.9% (32.0-37.0) Red Cell Distribution Width 12.7% (12.3-15.4) Platelet Count 347bil/L (150-400) Neutrophils (%) (Auto) 62.6% (40-74) Lymphocytes (%) (Auto) 25.7% (14-46) Monocytes (%) (Auto) 7.2% (4-12) Eosinophils (%) (Auto) 3.1% (0-5) Basophils (%) (Auto) 0.8% (0-3) Hold Purple Top Tube Received (Received) Hold Blue Top Tube Received (Received) Sodium Level 137mEq/L (134-144) Potassium Level 3.8mEq/L (3.5-5.2) Chloride Level 104mEq/L (97-108) Carbon Dioxide Level 17mmol/L (18-29) Blood Urea Nitrogen 14mg/dL (6-20) Creatinine 0.88mg/dL (0.76-1.27) Estimat Glomerular Filtration Rate 107mL/min (>59) Glucose Level 216mg/dL (60-99) Calcium Level 9.4mg/dL (8.5-10.1) Magnesium Level 1.9mg/dL (1.6-2.6) Total Bilirubin 0.2mg/dL (0.0-1.2) Aspartate Amino Transf (AST/SGOT) 15U/L (0-50) Alanine Aminotransferase (ALT/SGPT) 21U/L (0-44) Alkaline Phosphatase 58U/L (25-150) Total Protein 7.3g/dL (6.4-8.4) Albumin 4.5g/dL (3.4-5.0) Hold Red Top Tube Received (Received) Hold [place] Top Tube Received (Received) Hold [place] Top Tube Received (Received) Lab Results Interpretation: Elevated blood sugar CT Head Interpretation Interpretation / Wet Read by: Interpret - Radiologist Re-Eval/Medical Decision Med Decision/Clinical Course 31-year-old male presents with what could have been a grand mal seizure. He is not a good historian and does not have a good recollection of this episode. Labs were unremarkable with the exception of an elevated nonfasting glucose. His brain CT scan is normal. He is currently on topiramate. He also takes when necessary lorazepam. He is being discharged home to continue both of these medications. He will return if there is further problems. Otherwise Dr. Cordova as planned Re-Evaluation/Progress : Time of Eval: 06:19 Patient Status: Condition improved Re-Evaluation/Progress Note: Pt now reports a headache. He reports that his usual seizures are just arm tremors. Pt states that he hit his head during his seizure today. Pt now reports that last night he was having tremors while sitting on the couch, then when he went to the bathroom the tremors were worsened and then he had an unwitnessed LOC seizure. Pt reports that he heard himself hit his head during the grand mal seizure. He also complains of neck and head pain. Counseled Regarding: Diagnosis, Lab results, Need for follow-up, When/why to return to ED Discharge & Departure Impression: Primary Impression: Seizure disorder Disposition: Home Discharge Condition All VS Reviewed: Yes Condition: Improved Patient Instructions: Epilepsy (ED) Additional Instructions: Her labs were all normal with exception of mildly elevated glucose at 216. CT scan of the head is normal. Recommend that you continue using your when necessary lorazepam as needed for your symptoms of shakiness and restlessness. Return to the emergency room if he ever repeat seizure. Otherwise follow-up with Dr. Cordova as planned. Referrals: Michael Thomas MD (PCP) Darshan Cordova MD Attestation Portions of this note were transcribed by Abimbola Banks. I, Dr. Hamlin personally performed the history, physical exam and medical decision-making; I reviewed and confirmed the accuracy of the information in the transcribed note. Signed by: Brianne Mccauley, 11/27/2016 at 0700. copies to: Michael Thomas MD; Darshan Cordova MD, Howard L MD November 27, 2016 03:30 ABIMBOLA BANKS November 27, 2016 03:39
[2016-11-27 03:36] LABS: BASOPHILS % (AUTO) 0.8 % (0-3); EOSINOPHILS % (AUTO) 3.1 % (0-5); MONOCYTES % (AUTO) 7.2 % (4-12); Mean Corpuscular Hemoglobin 30.7 pg (27.0-35.0); Mean Corpuscular Volume 90.5 fL (81-100); NEUTROPHILS % (AUTO) 62.6 % (40-74); Platelet Count 347 bil/L (150-400)
[2016-11-27 03:48] LABS: Magnesium 1.9 mg/dL (1.6-2.6)
[2016-11-27 06:04] VITALS: BP 137/87; PULSE 81; RESP 15; O2SAT 96
--- NOTE | 2016-11-27 07:16 | DRSVH ---
PROCEDURE: CT BRAIN WITHOUT CONTRAST ([id number]) INDICATIONS: seizure, fall TECHNIQUE: Noncontrast 4.5 mm thick angled axial sections acquired from the foramen magnum to the vertex, with c oronal reformats. COMPARISON: [facility], CT, BRAIN W/O CONTRAST, 12/04/2011, 20:27. FINDINGS: Image quality: Excellent. CSF spaces: Basal cisterns are patent. No extra-axial fluid collections. Ventricles are normal in size and shape. Brain: No midline shift. No intracranial masses or hemorrhage. Lloyd-white matter interface is norm al. Skull and face: Calvarium and visualized facial bones are intact, without suspicious lesions. Sinuses: Minimal mucosal thickening in the sphenoid sinuses. Otherwise visualized sinuses and mastoid s are clear. IMPRESSION: 1. No CT evidence of acute intracranial pathology. 2. There are no discrepancies with the pulmonary report. Dictated by: Keith Cho M.D. on 11/27/2016 at 7:12 Approved by: Keith Cho M.D. on 11/27/2016 at 7:15
== END 2016-11-27 07:20 | disposition home or self-care (01) ==
LOC: SED 02:20
DX: G40.909 Epilepsy, unspecified, not intractable, without status epilepticus (principal); R51 Headache; M54.2 Cervicalgia; W22.8XXA Striking against or struck by other objects, initial encounter; Y93.89 Activity, other specified; Y92.9 Unspecified place or not applicable; Y99.8 Other external cause status; F43.10 Post-traumatic stress disorder, unspecified; F41.9 Anxiety disorder, unspecified; F17.200 Nicotine dependence, unspecified, uncomplicated; E11.9 Type 2 diabetes mellitus without complications; I10 Essential (primary) hypertension; F32.9 Major depressive disorder, single episode, unspecified; Z88.8 Allergy status to other drugs, medicaments and biological substances; Z79.4 Long term (current) use of insulin
CPT/HCPCS: 36415; 70450; 80053; 81002; 82948; 83735; 85025; 96374; 96375; 99285; J1885; J2060

== ENCOUNTER 2017-01-29 15:46 | Emergency (ER) | payer OTHER ==
[~2017-01-29] VITALS: Ht 182.9 cm; Wt 104.5 kg
[2017-01-29 15:52] VITALS: BP 137/82; PULSE 98; RESP 16; O2SAT 99
[2017-01-29 17:43] VITALS: BP 114/73; PULSE 82; O2SAT 100
--- NOTE | 2017-01-29 18:08 | ED.REPORT ---
HPI-Back Pain Under 40 Date of Service Jan 29, 2017 ED Provider: Deyanira Bryan History of Present Illness: back and neck pain for a while for 4 months. Chronic issues. sonny is primary care. smoking THC and taking ibuprofen for it. Is trying for disability. no injury. no bowel or bladder issues. 4 hernia surgeries on the left side in 2 years. able to feed self and do daily care. last visist with sonny was 2 or 3 months ago. Appointment with [facility] on 02/07/2017 no clonzapanen, lorzapam from [facility] gets 30 tablets a month. has been taking it for over a year Nursing Notes Chief Complaint: Back Pain or Injury Nursing Notes Reviewed: Yes Allergies: Coded Allergies: phenytoin (Verified Allergy, Severe, Psychosis and suicidal ideations, ) Scheduled Amlodipine (Amlodipine) 5 Mg Tablet 10 MG PO HS Gabapentin (Gabapentin) 800 Mg Tablet 1,600 MG PO HS Insulin Detemir (Levemir U100 Insulin Vial) 100 Unit/1 Ml Vial 30 UNITS SUBQ at bed time Insulin Regular, Human (HUMulin-R U100 Insulin Vial) 100 Unit/1 Ml Vial 1-12 UNIT SUBQ TIDWM Lisinopril (Lisinopril) 30 Mg Tablet 40 MG PO QAM Nicotine 7 mg/24 hr Patch (Nicotine 7 mg/24 hr Patch) 1 Each Patch.td24 1 PATCH TRANSDERM DAILY Start using these after the 14mg patches run out. Topiramate (Topiramate) 25 Mg Tablet 200 MG PO BID Trazodone (Trazodone) 50 Mg Tablet 100 MG PO HS Scheduled PRN Albuterol HFA (Proair HFA) 8.5 Gm Hfa.aer.ad 2 PUFFS INHALATION Q4H PRN PRN For Shortness of Breath Clonazepam (Clonazepam) 0.5 Mg Tablet 0.5 MG PO TID PRN PRN AURA Ibuprofen (Ibuprofen) 200 Mg Capsule 200-400 MG PO QID PRN PRN For Pain Lorazepam (Lorazepam) 0.5 Mg Tablet 0.5 MG PO every 6 hours PRN PRN Anxiety or auras General Time Seen by MD: 18:06 Chief Complaint Back pain, Neck pain, Other (hip pain) Hx Obtained From: Patient Sudden in Onset?: No Onset Occurred: More than a week ago... (4 months) Caused by: Spontaneous/no mechanism Past Medical History Past Medical History HTN Seizures (focal nocturnal) Anxiety Depression insomnia arachnoid cyst polyps in sinus cavities Reports: Diabetes mellitus Past Surgical History Inguinal hernia repair Deviated septum repair Family History noncontributory Smoking History Current Every Day Smoker (1/2 pack a dayfor 15 years) Social History Alcohol Use: Denies alcohol use Drug Use: THC Other Social History: Good social support, Local resident Occupation lives by self, no work or school 01/29/2017 Ambulatory Status Independent Review of Systems Basic Review of Systems Eyes: Vision NL, No discharge Hematologic: No bleeding, No bruising Skin: No bruising, No rash, No itch Physical Exam Initial Vital Signs Vital Signs (First) Date Time Temp Pulse Resp B/P Pulse Ox O2 Delivery O2 Flow Rate FiO2 01/29/17 15:52 36.9 98 16 137/82 99 Room Air Initial VS: Reviewed, Vital signs normal Head / Eyes: Atraumatic, Normocephalic, PERRL ENT: Mucous membranes moist, Conjunctiva normal, No scleral icterus Neck: Supple, Non-tender, Full range of motion Respiratory: Breath sounds normal, Clear to auscultation, No respiratory distress Cardiovascular: Heart sounds normal, Intact distal pulses Abdomen / GI: Soft, Non-tender, No guarding, No rebound, No distention Lymphatic: No lymphadenopathy Extremities: Vascular intact, Neuro intact, No swelling, No tenderness Skin: Warm, Dry, No cyanosis Psychiatric: Mood/affect normal, Behavior normal, Normal thought content General/Constitutional: Awake, Alert, No acute distress, Well appearing, Well developed, Well hydrated, Well nourished, Cooperative, Not toxic appearing Back: Atraumatic, Inspection NL, Full range of motion, Painless range of motion Neurologic: Oriented X3, Speech NL, No motor deficits, No sensory deficits, CN II - XII intact gait is abnormal, patient states his walking is altered becuse of his hip. 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 Able to move arms to t4 of back without difficulty Respiratory / Chest: Atraumatic faint exp wheezing at bilateral lung bases with forced expiratation. patient states has inhaler and nebulizer at home but has not used them in months Cardiovascular: Heart rate NL, Regular rhythm, Heart sounds NL, No gallop Re-Eval/Medical Decision Med Decision/Clinical Course 31 year old male initially presented for pain control. When informed we do not provide opiates for ongoing chronic pain he then stated he wanted imaging. Explained with a normal exam and no injury and the ongoing nature of the pain,imaging not indicated from the ER. Encouraged follow up with Dr. Thomas. Patient then states the medication does nothing for him and he states he will continue to leave and check in until he gets what he wants, No sign of cauda eguina or abnormality Discharge & Departure Impression: Primary Impression: Chronic back pain Additional Impression: Chronic neck and back pain Disposition: Home Patient Instructions: Chronic Back Pain (ED), Chronic Pain (ED), Narcotic Pain Management (ED) Additional Instructions: I am sorry you are having all these problems. The ER does not provide opiates for ongoing chronic pain. Please continue with the decadron, it will help your pain as well as your asthma. The exam is reassuring at this time. Please work with Dr. Thomas and [facility] to address these concerns. Please request a referral from Dr. Thomas to pain management. The referral must come from primary care. With your use of chronic benzo's this puts you at a higher risk with combining the 2 medications. Referrals: Michael Thomas MD (PCP) EDSupervising Provider for APC: Jameson Escoto MD copies to: Michael Thomas MD, Sue ARNP Jan 29, 2017 18:08
[2017-01-29 19:31] VITALS: BP 133/89; PULSE 95; O2SAT 95
== END 2017-01-29 19:15 | disposition home or self-care (01) ==
LOC: SED 15:46
DX: M54.2 Cervicalgia (principal); G89.29 Other chronic pain; F17.200 Nicotine dependence, unspecified, uncomplicated; I10 Essential (primary) hypertension; Z88.8 Allergy status to other drugs, medicaments and biological substances
CPT/HCPCS: 96372; 99283; J1885

== ENCOUNTER 2017-01-29 19:18 | Emergency (ER) | payer OTHER ==
[~2017-01-29] VITALS: Ht 182.9 cm; Wt 104.5 kg
[2017-01-29 19:18] VITALS: BP 134/86; PULSE 55; RESP 16; O2SAT 98
--- NOTE | 2017-01-29 21:08 | ED.REPORT ---
HPI-Back Pain Under 40 Date of Service Jan 29, 2017 ED Provider: Jameson Escoto MD Pt is a 31 year old male with a history of HTN, DM, and back pain who presents to the ED complaining of intermittent lower back pain onset 3 months ago. He c/ o associated neck pain, nausea, bilaterally leg weakness, and burning sensation in his legs bilaterally. He denies injury. Pt reports that he does "a lot of heavy lifting." He states "the only reason I came in today was for proper exams. " Pt presented early today for his symptoms and he was diagnosed with chronic back and neck pain. He was advised to follow up with Dr. Thomas, his PCP, and [facility] for further evaluation. Upon discharge, the pt rechecked into the ED wanting further evaluation. Nursing Notes Stated Complaint: NECK AND BACK PAIN Chief Complaint: Back Pain or Injury Nursing Notes Reviewed: Yes Allergies: Coded Allergies: phenytoin (Verified Allergy, Severe, Psychosis and suicidal ideations, ) Scheduled Amlodipine (Amlodipine) 5 Mg Tablet 10 MG PO HS Gabapentin (Gabapentin) 800 Mg Tablet 1,600 MG PO HS Insulin Detemir (Levemir U100 Insulin Vial) 100 Unit/1 Ml Vial 30 UNITS SUBQ at bed time Insulin Regular, Human (HUMulin-R U100 Insulin Vial) 100 Unit/1 Ml Vial 1-12 UNIT SUBQ TIDWM Lisinopril (Lisinopril) 30 Mg Tablet 40 MG PO QAM Nicotine 7 mg/24 hr Patch (Nicotine 7 mg/24 hr Patch) 1 Each Patch.td24 1 PATCH TRANSDERM DAILY Start using these after the 14mg patches run out. Topiramate (Topiramate) 25 Mg Tablet 200 MG PO BID Trazodone (Trazodone) 50 Mg Tablet 100 MG PO HS Scheduled PRN Albuterol HFA (Proair HFA) 8.5 Gm Hfa.aer.ad 2 PUFFS INHALATION Q4H PRN PRN For Shortness of Breath Clonazepam (Clonazepam) 0.5 Mg Tablet 0.5 MG PO TID PRN PRN AURA Ibuprofen (Ibuprofen) 200 Mg Capsule 200-400 MG PO QID PRN PRN For Pain Lorazepam (Lorazepam) 0.5 Mg Tablet 0.5 MG PO every 6 hours PRN PRN Anxiety or auras General Time Seen by MD: 21:08 Chief Complaint Back pain Hx Obtained From: Patient Arrived By: Walk-in Sudden in Onset?: No Onset Occurred: More than a week ago... (2 weeks) Symptom Duration: Intermittent Location: : Generalized Quality: Painful Radiation: : Neck Severity: Current: Moderate Severity: Maximum: Moderate Recent Healthcare: Recent doctor visit Similar Sx Previous: Yes Past Medical History Past Medical History Seizures (focal nocturnal) Anxiety insomnia arachnoid cyst polyps in sinus cavities back pain Reports: Diabetes mellitus, Hypertension Reports: Depression Past Surgical History Inguinal hernia repair Deviated septum repair Family History noncontributory Smoking History Current Every Day Smoker Social History Alcohol Use: Denies alcohol use Drug Use: THC Other Social History: Good social support, Local resident Occupation lives by self, no work or school 01/29/2017 Ambulatory Status Independent Review of Systems + burning sensation in legs bilaterally + bilateral leg weakness Denies injury GI: Reports: Nausea Musculoskeletal: Reports: Back pain, Extremity pain Complete sys rev & neg: except as marked. Physical Exam Initial Vital Signs Vital Signs (First) Date Time Temp Pulse Resp B/P Pulse Ox O2 Delivery O2 Flow Rate FiO2 01/29/17 19:18 36.8 55 16 134/86 98 Room Air Initial VS: Reviewed Head / Eyes: Atraumatic, Normocephalic Extremities: Vascular intact, Neuro intact Skin: Warm, Dry, No cyanosis Psychiatric: Mood/affect normal, Behavior normal General/Constitutional: Awake, Alert Back: Atraumatic, Full range of motion Paraspinal spasm. No focal line tenderness. Neurologic: Oriented X3, Speech NL, No motor deficits, No sensory deficits Able to do deep kneel down and stand on his toes. Ambulatory with a steady gait. Neck: Atraumatic, Full range of motion No step-off. Re-Eval/Medical Decision Med Decision/Clinical Course 31 year old male with back pain of months duration. No suggestion of epidural abscess or cauda equina syndrome. Does not have an indication for emergent imaging, which he is focused on. Explained this; he has follow up. Source of Hx: Old records Re-Evaluation/Progress : Time of Eval: 21:10 Re-Evaluation/Progress Note: Advised pt to follow up with his primary care provider. He left his prescription and discharge instructions on the counter and walked out angrily. Counseled Regarding: Diagnosis, Lab results, Need for follow-up, When/why to return to ED Discharge & Departure Departure Notes Walked out without DC instructions. Also left Rx from last visit. Impression: Primary Impression: Low back pain Chronicity: chronic Back pain laterality: bilateral Sciatica presence: with sciatica Sciatica laterality: sciatica of right side Qualified Code: M54.41 - Lumbago with sciatica, right side Disposition: LEFT WITHOUT BEING SEEN All VS Reviewed: Yes Condition: Stable Referrals: Michael Thomas MD (PCP) Scribe Attestation Portions of this note were transcribed by Antonietta Mills. I, Dr. Escoto personally performed the history, physical exam and medical decision-making; I reviewed and confirmed the accuracy of the information in the transcribed note. Signed by : Brianne Sanchez, 01/29/17. copies to: Michael Thomas MD, Donald L MD Jan 29, 2017 21:08 Antonietta Caldwell Jan 29, 2017 21:19
== END 2017-01-29 21:36 | disposition home or self-care (01) ==
LOC: SED 19:18
DX: M54.41 Lumbago with sciatica, right side (principal); E11.9 Type 2 diabetes mellitus without complications; I10 Essential (primary) hypertension; F17.200 Nicotine dependence, unspecified, uncomplicated; Z79.4 Long term (current) use of insulin; Z88.8 Allergy status to other drugs, medicaments and biological substances

== ENCOUNTER 2017-03-16 09:10 | Emergency (ER) | payer OTHER ==
[~2017-03-16] VITALS: Ht 182.9 cm; Wt 104.5 kg
[~2017-03-16 09:10] MED LIST changes: -NIC7 TRANSDERM; +NICO-206 TRANSDERM
[2017-03-16 09:19] VITALS: BP 136/93; PULSE 77; RESP 18; O2SAT 98
--- NOTE | 2017-03-16 09:25 | ED.REPORT ---
HPI-Abd Pain M Under 40 Date of Service Mar 16, 2017 ED Provider: Mervin Pitt Patient is a 32 year old male with a hx of DM, HTN, and hernias who presents to the ED complaining of LLQ abdominal pain that radiates to his L groin onset a week ago. His pain is constant and worse with certain movements and coughing. Associated symptoms include nausea. He denies dysuria, fever, diarrhea, constipation, hematochezia, or any other symptoms. He was recently on abx and prednisone for a respiratory illness. Pt reports that this feels similar to his previous hernias. Nursing Notes Stated Complaint: LOWER ABDOMINAL/GROIN PAIN Chief Complaint: Male Abdominal Pain Nursing Notes Reviewed: Yes Allergies: Coded Allergies: phenytoin (Verified Allergy, Severe, Psychosis and suicidal ideations, ) Scheduled Amlodipine (Amlodipine) 5 Mg Tablet 10 MG PO HS Gabapentin (Gabapentin) 800 Mg Tablet 1,600 MG PO HS Insulin Detemir (Levemir U100 Insulin Vial) 100 Unit/1 Ml Vial 30 UNITS SUBQ at bed time Insulin Regular, Human (HUMulin-R U100 Insulin Vial) 100 Unit/1 Ml Vial 1-12 UNIT SUBQ TIDWM Lisinopril (Lisinopril) 30 Mg Tablet 40 MG PO QAM Nicotine 7 mg/24 hr Patch (Nicotine 7 mg/24 hr Patch) 1 Each Patch.td24 1 PATCH TRANSDERM DAILY Start using these after the 14mg patches run out. Topiramate (Topiramate) 25 Mg Tablet 200 MG PO BID Trazodone (Trazodone) 50 Mg Tablet 100 MG PO HS Scheduled PRN Albuterol HFA (Proair HFA) 8.5 Gm Hfa.aer.ad 2 PUFFS INHALATION Q4H PRN PRN For Shortness of Breath Clonazepam (Clonazepam) 0.5 Mg Tablet 0.5 MG PO TID PRN PRN AURA Hydrocodone-Acetaminophen 5-325 mg (Hydrocodone-Acetaminophen 5-325 mg) 1 Each Tablet 1 TABLET PO Q4H PRN PRN For Pain Ibuprofen (Ibuprofen) 200 Mg Capsule 200-400 MG PO QID PRN PRN For Pain Lorazepam (Lorazepam) 0.5 Mg Tablet 0.5 MG PO every 6 hours PRN PRN Anxiety or auras Ondansetron ODT (Zofran ODT) 4 Mg Tablet 4 MG PO Q4H PRN PRN For Nausea General Time Seen by MD: 09:24 Chief Complaint Abdominal pain Hx Obtained From: Patient Arrived By: Walk-in Sudden in Onset?: Yes Onset Occurred: 1 week ago Symptom Duration: Since onset Location: : LLQ Quality: Burning, Painful Radiation: : Inguinal left Severity: Current: Moderate Severity: Maximum: Moderate Associated with: Reports: Nausea Exacerbated by: Certain positions, Cough, Movement Similar Sx Previous: Yes Past Medical History Past Medical History Seizures (focal nocturnal) Anxiety insomnia arachnoid cyst polyps in sinus cavities back pain hernias Reports: Asthma, Diabetes mellitus, Hypertension Reports: Depression Past Surgical History Inguinal hernia repair x4 Deviated septum repair Family History noncontributory Smoking History Current Every Day Smoker Social History Alcohol Use: Denies alcohol use 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 Physical Exam Initial Vital Signs Vital Signs (First) Date Time Temp Pulse Resp B/P Pulse Ox O2 Delivery O2 Flow Rate FiO2 03/16/17 09:19 36.9 77 18 136/93 98 Room Air Initial VS: Reviewed, Vital signs normal Head / Eyes: Atraumatic, Normocephalic Neck: Full range of motion Skin: Warm, Dry Neurologic: Alert, Oriented, Nonfocal General/Constitutional: Awake, Alert Respiratory / Chest: Atraumatic, Breath sounds NL, Breath sounds = bilat, No respiratory distress Cardiovascular: Heart rate NL, Regular rhythm, Heart sounds NL, No murmurs Abdomen: Atraumatic, Soft Back: No CVA tenderness Male Genitourinary: Atraumatic Scarring and diffuse swelling to the inguinal canal No erythema minimal tenderness Interpretation & Diagnostics Lab Results Interpretation Result Diagram: 03/16/17 1018 03/16/17 1018 Test 03/16/17 10:18 03/16/17 14:44 White Blood Count 7.8th/mm3 (3.8-10.1) Red Blood Count 4.72mil/mm3 (4.40-5.80) Hemoglobin 14.5g/dL (13.8-17.2) Hematocrit 43.0% (41.0-50.0) Mean Corpuscular Volume 91.1fL (81-100) Mean Corpuscular Hemoglobin 30.7pg (27.0-35.0) Mean Corpuscular Hemoglobin Concent 33.7% (32.0-37.0) Red Cell Distribution Width 12.8% (12.3-15.4) Platelet Count 304bil/L (150-400) Neutrophils (%) (Auto) 57.3% (40-74) Lymphocytes (%) (Auto) 30.5% (14-46) Monocytes (%) (Auto) 7.1% (4-12) Eosinophils (%) (Auto) 3.7% (0-5) Basophils (%) (Auto) 0.4% (0-3) Sodium Level 139mEq/L (134-144) Potassium Level 4.1mEq/L (3.5-5.2) Chloride Level 106mEq/L (97-108) Carbon Dioxide Level 20mmol/L (18-29) Blood Urea Nitrogen 14mg/dL (6-20) Creatinine 0.69mg/dL (0.76-1.27) Estimat Glomerular Filtration Rate 140mL/min (>59) Glucose Level 213mg/dL (60-99) Calcium Level 9.8mg/dL (8.5-10.1) Magnesium Level 1.7mg/dL (1.6-2.6) Total Bilirubin 0.2mg/dL (0.0-1.2) Aspartate Amino Transf (AST/SGOT) 13U/L (0-50) Alanine Aminotransferase (ALT/SGPT) 17U/L (0-44) Alkaline Phosphatase 58U/L (25-150) Total Protein 7.1g/dL (6.4-8.4) Albumin 4.6g/dL (3.4-5.0) Lipase 22U/L (13-60) Hold Warren Top Tube Received (Received) Hold Urine Received (Received) Re-Eval/Medical Decision Med Decision/Clinical Course 32-year-old male history of left inguinal hernia repair 4 presenting with left hernia pain and crampy abdominal pain. His labs are unremarkable. He has minimal tenderness in his left groin and no hernia was palpated. Ultrasound was performed which shows mesh in place and no evidence of hernia. His vital signs are stable. There is no evidence of infection. Patient's pain resolved while he was here. He will be discharged home with follow-up with his general surgeon and his primary doctor. He will return immediately if he has any new or worsening pain, fevers, bloody stools, nausea vomiting, since symptoms infection other new or worsening symptoms. Re-Evaluation/Progress : Time of Eval: 11:03 Re-Evaluation/Progress Note: Discussed US results and plan for discharge. Patient understands and agrees with plan. All questions addressed at this time. Counseled Regarding: Diagnosis, Lab results, Need for follow-up, When/why to return to ED Patient Discharge & Departure Primary Impression: Generalized abdominal pain Additional Impression: Inguinal pain Laterality: unspecified laterality Qualified Code: R10.30 - Lower abdominal pain, unspecified Disposition: Home Discharge Condition All VS Reviewed: Yes Condition: Stable Additional Instructions: Thank you for entrusting us with your care. The ultrasound did not show any evidence of a hernia. Your labs were unremarkable. Follow up with your PCP and your surgeon in the next few days for re- evaluation. Return to the emergency department for increasing pain, fevers, nausea and vomiting, bloody stools, redness, swelling, or any other new or concerning symptoms. Referrals: Michael Thomas MD (PCP) Scribe Attestation Portions of this note were transcribed by Linda Jackson. I, Dr. Pitt personally performed the history, physical exam and medical decision-making; I reviewed and confirmed the accuracy of the information in the transcribed note. Signed by: Brianne Tian, 03/16/17 copies to: Michael Thomas MD, Ben M MD Mar 16, 2017 09:25 LINDA JACKSON Mar 16, 2017 09:53
[2017-03-16] MEDS ORDERED: HYDROcodone-APAP 5-325 mg Tablet PO ONE (09:50)
[2017-03-16 10:26] LABS: BASOPHILS % (AUTO) 0.4 % (0-3); EOSINOPHILS % (AUTO) 3.7 % (0-5); MONOCYTES % (AUTO) 7.1 % (4-12); Mean Corpuscular Hemoglobin 30.7 pg (27.0-35.0); Mean Corpuscular Volume 91.1 fL (81-100); NEUTROPHILS % (AUTO) 57.3 % (40-74); Platelet Count 304 bil/L (150-400)
[2017-03-16 10:54] LABS: Magnesium 1.7 mg/dL (1.6-2.6)
[2017-03-16] MEDS ORDERED: HYDR-4003 PO (11:11)
[2017-03-16] MEDS ORDERED: ONDA4TAB9 PO (11:11)
[2017-03-16 11:19] VITALS: BP 110/74; PULSE 82; RESP 18
--- NOTE | 2017-03-16 15:51 | DRSVH ---
PROCEDURE: US HERNIA INGUINAL INDICATIONS: Left inguinal hernia pain TECHNIQUE: Real-time focused scanning was performed of the inguinal region, with image documentation. COMPARISON: None. FINDINGS: Mesh hernia repair material is present and no recurrent herniation is seen. IMPRESSION: No recurrent left inguinal hernia seen sonographically. There is continued clinical conc gino for such, CT could be performed. Dictated by: Gilberto HARTMAN Interpreted: Maribeth Ham MD on 03/16/2017 at 10:49 Approved by: Maribeth Ham M.D. on 03/16/2017 at 15:49
== END 2017-03-16 11:15 | disposition home or self-care (01) ==
LOC: SED 09:10
DX: R10.84 Generalized abdominal pain (principal); R10.32 Left lower quadrant pain; R11.0 Nausea; I10 Essential (primary) hypertension; J45.909 Unspecified asthma, uncomplicated; F41.8 Other specified anxiety disorders; E11.9 Type 2 diabetes mellitus without complications; F17.200 Nicotine dependence, unspecified, uncomplicated; Z98.890 Other specified postprocedural states; Z79.4 Long term (current) use of insulin; Z88.8 Allergy status to other drugs, medicaments and biological substances

== ENCOUNTER 2017-03-19 08:35 | Emergency (ER) | payer OTHER ==
[~2017-03-19] VITALS: Ht 182.9 cm; Wt 106.8 kg
[~2017-03-19 08:35] MED LIST changes: +HYDR-4003 PO; +ONDA4TAB9 PO
[2017-03-19 08:38] VITALS: BP 144/92; PULSE 77; RESP 16; O2SAT 100
[2017-03-19] MEDS ORDERED: Iohexol 300 mg/mL 30 mL Inj PO ONE (08:50)
[2017-03-19] MEDS ORDERED: HYDROmorphone 0.5 mg/0.5 mL iSecure Syringe IVPUSH PRN (08:50)
[2017-03-19] MEDS ORDERED: Ondansetron 2 mg/mL 2 mL Inj IVPUSH ONE (08:50)
[2017-03-19] MEDS ORDERED: 0.9% Sodium Chloride 1,000 ML IV ONE (08:50)
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
[2017-03-19 09:40] LABS: BASOPHILS % (AUTO) 0.7 % (0-3); EOSINOPHILS % (AUTO) 5.4 % (0-5); MONOCYTES % (AUTO) 6.3 % (4-12); Mean Corpuscular Hemoglobin 30.8 pg (27.0-35.0); Mean Corpuscular Volume 91.3 fL (81-100); NEUTROPHILS % (AUTO) 51.6 % (40-74); Platelet Count 263 bil/L (150-400)
[2017-03-19 09:41] LABS: APPEARANCE,URINE CLEAR (CLEAR,HAZY); COLOR,URINE STRAW (YELLOW); PH,URINE 6.5 (5.0-8.0)
[2017-03-19 09:42] LABS: OCCULT BLOOD,URINE NEGATIVE (NEGATIVE); UROBILINOGEN,URINE NORMAL (NORMAL)
[2017-03-19 10:16] LABS: Magnesium 1.9 mg/dL (1.6-2.6)
--- NOTE | 2017-03-19 10:54 | DRSVH ---
PROCEDURE: CT ABDOMEN AND PELVIS WITH CONTRAST ([id number]) INDICATIONS: LLQ pain, ?recurrent hernia TECHNIQUE: After the administration of oral and intravenous contrast, 5 mm thick sections acquired from the diap hragms to the symphysis. 5 mm thick coronal and sagittal reformats were performed. For radiation do se reduction, the following was used: automated exposure control, adjustment of mA and/or kV accordi ng to patient size. COMPARISON: [facility], CT, CT ABD PELVIS W CON, 06/15/2015, 0:49. [facility] al, CT, CT ABD PELVIS W CON, 08/22/2016, 15:44. FINDINGS: Image quality: Excellent. ABDOMEN: Lung bases: 10 mm subpleural nodule within the right anterior lung base 5 mm diameter nodule within the right middle lobe lateral segment is unchanged. No change in 5 mm subpleural nodule within the ri ght lung base posteriorly. Lung bases are otherwise clear. Heart size is normal. Solid organs: Liver and spleen are normal in size and enhancement. Gallbladder is within normal monreal its. Biliary system is non-dilated. Pancreas enhances normally. No adrenal nodules. Kidneys are n ormal in size and enhancement, without hydronephrosis. Nonobstructing 3 mm diameter calculus within the inferior pole left kidney. Peritoneum and bowel: Stomach, small bowel, and colon loops are normal in caliber and wall thickness . No free fluid or air. Normal appendix. Nodes and vessels: No retroperitoneal or mesenteric adenopathy. Aorta and inferior vena cava are no rmal in caliber. Miscellaneous: No ventral hernias. New 40 mm diameter region of ill-defined fat stranding within th e subcutaneous fat overlying the left anterolateral pelvis. PELVIS: Genitourinary: Bladder wall thickness is normal. Miscellaneous: No inguinal hernias or adenopathy. Fluid and fat stranding within the left inguinal canal are present, as before, compatible with postsurgical sequelae. Bones: No suspicious bony lesions. No vertebral body compression fractures. IMPRESSION: 1. Postsurgical sequelae within the left inguinal canal. No evidence of recurrent inguinal hernia. 2. Nonobstructing left inferior pole renal calculus. 3. Focal region of fat stranding within the subcutaneous fat of the left anterolateral pelvis. Differ ential considerations for this include iatrogenic (i.e., secondary to medication administration) vers us inflammatory versus infectious. 4. Normal appendix. 5. Right lung base nodule; followup is recommended as below. Fleischner Society criteria for SOLID lung nodule followup. Nodule size (mm)Low-risk patientHigh-risk [id number] follow-up neededFollow-up at 12 mo; if no townsend e, no further follow-up>[id number] CT at 12 mo; if no change, no further follow-up needed.Initial f ollow-up CT at 6-12 mo, then 18-24 mo if no change. >6-8Initial follow-up CT at 6-12 mo, then 18-24 mo if no change. Initial follow-up CT at 3-6 mo, then 9-12 mo and 24 mo if no change. >8Follow-up CT at 3, 9, 24 mo. Or PET and/or biopsy.Same as for low-risk pts. Dictated by: Miroslava Fenton M.D. on 03/19/2017 at 10:47 Approved by: Miroslava Fenton M.D. on 03/19/2017 at 10:52
[2017-03-19] MEDS ORDERED: HYDR-4003 PO (11:27)
[2017-03-19 11:40] VITALS: BP 101/60; PULSE 69; RESP 16; O2SAT 98
== END 2017-03-19 11:41 | disposition home or self-care (01) ==
LOC: SED 08:35
DX: R10.32 Left lower quadrant pain (principal); I10 Essential (primary) hypertension; J45.909 Unspecified asthma, uncomplicated; E11.9 Type 2 diabetes mellitus without complications; F41.8 Other specified anxiety disorders; F17.200 Nicotine dependence, unspecified, uncomplicated; Z98.890 Other specified postprocedural states; Z79.4 Long term (current) use of insulin; Z88.8 Allergy status to other drugs, medicaments and biological substances
CPT/HCPCS: 36415; 74177; 80053; 81000; 83690; 83735; 85025; 96361; 96374; 99285; J2405; J7030; Q9967